=== PATIENT | female | born 1930 | race Caucasian/White ===

== ENCOUNTER → 2016-11-15 | Outpatient (CLI) | payer OTHER ==
[~2016-11-15] MED LIST: ALBUAER2 INH; APIX1TAB3 PO; ASPEC81 PO; ASPI81TA28 PEG; ASPI81TA28 PO; CALC500C70 PO; CHOL1000 PO; ELQ25 PO; FURO-85 PO; GABA-112 PO; HYDR-3763 PO; HYDR-4383 PO; LEVO-14 PO; LISI-461 PO; LORA-741 PO; LPT40 PO; MECL1TAB42 PO; MULT-506 PO; NTRSLP4 SL; PLV75 PO; PRLSR20 PO; PRT40 PO; SIMV20TA2 PO; SYMIN/8045 INH; SYMIN160 INH; TPRSR25 PO
[2016-11-15 12:20] LABS: URINE APPEARANCE CLEAR (CLEAR); URINE BILIRUBIN NEG (NEG); URINE COLOR DK YELLOW; URINE EPITHELIAL CELL AUTO >30 /lpf (0-5); URINE NITRITE NEG (NEG); URINE SPECIFIC GRAVITY 1.024 (1.000-1.030); UROBILINOGEN NEG (NEG)
[2016-11-15 12:25] LABS: BLOOD UREA NITROGEN 28 mg/dl (7-18)
[2016-11-15 12:29] LABS: MANUAL MICROSCOPIC REQUIRED? NO; REVIEW REQ? YES
== END | disposition home or self-care (01) ==
LOC: C.LAB1850 10:46
PROVIDERS: ATTEND Physical Medicine & Rehabilitation
DX: Z79.1 Long term (current) use of non-steroidal anti-inflammatories (NSAID) (principal); R39.9 Unspecified symptoms and signs involving the genitourinary system

== ENCOUNTER → 2016-11-29 | Day surgery (SDC) | payer OTHER ==
[2016-11-27 09:15] VITALS: Ht 166.4 cm; Wt 84.1 kg
[~2016-11-29] VITALS: Ht 166.4 cm; Wt 84.1 kg
[~2016-11-29] MED LIST changes: -ASPI81TA28 PEG; +BUPIVACAINE 0.25% 2.5MG/ML PF 10 ML VIAL INFIL ONE; +IOPAMIDOL INJ 61% 15 ML VIAL ONE; +LIDOCAINE HCL 1% MPF 5 ML VIAL ONE; -SYMIN/8045 INH
--- NOTE | 2016-11-29 14:31 | History & Physical Bridge - [place] ---
H&P Re-Evaluation Bridge Note: I have examined the patient, reviewed the History & Physical and in the interval since the performance of the History & Physical I have noted the following changes of clinical significance: No changes noted
[2016-11-29 14:55] VITALS: TEMP 36.8
--- NOTE | 2016-11-29 14:58 | Discharge Instructions ---
Discharge Instructions Visit Reason for Visit: Sacroiliitis Discharge Discharge Diagnosis / Problem: low back pain Discharge Goals Goal(s): Decrease discomfort, Improve function Activity Recommendations Activity Limitations: resume your previous activity Anesthesia . Post Anesthesia Instructions: If you have had General Anesthesia or IV Sedation: * Do not drive today. * Resume driving when surgeon permits. * Do not make important decisions or sign legal documents today. * Call surgeon for: 1. Temperature elevations greater than 101 degrees F. 2. Uncontrollable pain. 3. Excessive bleeding. 4. Persistent nausea and vomiting. 5. Medication intolerance (nausea, vomiting or rash). * For nausea and vomiting use only clear liquids such as: tea, soda, bouillon until nausea subsides, then gradually increase diet as tolerated. * If you have any concerns or questions, call your surgeon's office. If physician is unavailable and it is an emergency, call 911 or go to the nearest emergency room. . Diet Recommendations Recommended Home Diet: resume previous diet Procedures Procedures Performed: BILATERAL SACROILIAC JOINT INJECTION Pending Studies Studies pending at discharge: no Medical Emergencies . Who to Call and When: Medical Emergencies: If at any time you feel your situation is an emergency, please call 911 immediately. . Non-Emergent Contact Non-Emergency issues call your: Specialist . . "Provider Documentation" section prepared by Ankit Mccullough.
[2016-11-29 15:11] VITALS: BP 179/79; PULSE 65; O2SAT 95
--- NOTE | 2016-11-29 15:30 | OPERATIVE REPORT ---
DATE OF OPERATION: 11/29/2016 PREOPERATIVE DIAGNOSIS: Bilateral sacroiliitis. POSTOPERATIVE DIAGNOSIS: Same. PROCEDURE: Bilateral sacroiliac joint injections under fluoroscopic guidance. INDICATIONS FOR PROCEDURE: The patient is an 86-year-old white female who has intractable low back pain. She is describing them laterally in the sacroiliac joint region and she reports that it is uncomfortable trying to function, standing for too long, extending, twisting and very uncomfortable. She is requesting SI joint injections to be injected to provide her with some relief of this pain for the therapeutic purposes. PHYSICAL EXAMINATION: GENERAL: Pleasant female, seated comfortably, in no apparent distress. MUSCULOSKELETAL: She has point tenderness to palpation of her SI joints bilaterally. She has normal motor and sensory examination of her lower extremities and she has a positive Jules maneuver and sacral compression maneuver bilaterally. CONSENT: Verbal and written consent was obtained from the patient. Risks and benefits were reviewed. Risks include but are not limited to abscess and allergic reaction. The patient wishes to proceed. DESCRIPTION OF PROCEDURE: The patient was taken back to the special procedures room of the [facility]. She was maintained in a prone position. Backside was cleansed with Betadine x3 and a dry sterile dressing was applied. Fluoroscope was used to identify the left SI joint and the overlying skin was anesthetized with 2.5 mL of lidocaine 1% with a 25-gauge 1.5-inch needle. A 25-gauge 3.5-inch spinal needle was then directed into the joint under fluoroscopic guidance. With Isovue 300 contrast to confirm intraarticular uptake, she then underwent injection after negative aspiration of 40 mg of Depo-Medrol and 1.5 mL of bupivacaine 0.25%. The right SI joint then was fluoroscopically identified and overlying skin was anesthetized with 2.5 mL of lidocaine 1% with a 25-gauge 1.5-inch needle. A 25-gauge 3.5-inch spinal needle was then directed into the joint. Isovue-300 contrast 0.25 mL demonstrated intraarticular uptake of the needle being intraarticular into the joint. She then underwent injection after negative aspiration of 40 mg of Depo-Medrol and 1.5 mL of bupivacaine 0.25%. Injection was well tolerated. DISPOSITION: 1. The patient is taken out into the discharge recovery area where she will be discharged home once discharge criteria have been met. 2. Follow up in the [facility] office in 2-4 weeks. I attest to the content of the Intraoperative Record and any orders documented therein. Any exceptio ns are noted below.
== END | disposition home or self-care (01) ==
LOC: X.SURG 12:48
PROVIDERS: ATTEND Physical Medicine & Rehabilitation
DX: M46.1 Sacroiliitis, not elsewhere classified (principal); M96.1 Postlaminectomy syndrome, not elsewhere classified; M47.817 Spondylosis without myelopathy or radiculopathy, lumbosacral region; G89.29 Other chronic pain; Z98.1 Arthrodesis status

== ENCOUNTER 2017-02-09 09:24 | Observation (INO) | payer OTHER ==
[~2017-02-09] VITALS: Ht 165.1 cm; Wt 87.9 kg
[2017-02-09] VITALS (15 sets, daily range): BP systolic 123–192; BP diastolic 62–118; PULSE 75–120; TEMP 36.5–36.6; O2SAT 95–97; Ht 165.1 cm; Wt 87.9 kg
[~2017-02-09 09:24] MED LIST changes: -ASPEC81 PO; -ASPI81TA28 PO; -BUPIVACAINE 0.25% 2.5MG/ML PF 10 ML VIAL INFIL ONE; -ELQ25 PO; -HYDR-4383 PO; -IOPAMIDOL INJ 61% 15 ML VIAL ONE; -LIDOCAINE HCL 1% MPF 5 ML VIAL ONE; -LPT40 PO; -MULT-506 PO; -NTRSLP4 SL; -PLV75 PO; -PRT40 PO
[2017-02-09] MEDS ORDERED: ASPI81TA28 PO (10:43)
[2017-02-09] MEDS ORDERED: GABA-112 PO (10:43)
[2017-02-09] MEDS ORDERED: MULT-506 PO (10:43)
[2017-02-09] MEDS ORDERED: HYDR-3763 PO (10:43)
[2017-02-09] MEDS ORDERED: FENTANYL CITRATE INJ 50 MCG/1 ML 2 ML VIAL ONE (11:36)
[2017-02-09] MEDS ORDERED: NiCARDipine HCL INJ 2.5 MG/ML 10 ML AMP ONE (11:36)
[2017-02-09] MEDS ORDERED: HEPARIN SOD (PORCINE) 1000 UNIT/ML 10 ML VIAL ONE (11:36)
[2017-02-09] MEDS ORDERED: MIDAZOLAM HCL 1 MG/ML 2ML VIAL ONE ×2 (11:36→13:04)
[2017-02-09] MEDS ORDERED: NITROGLYCERIN/D5W 100MCG/ML 20ML SYR ONE (11:37)
--- NOTE | 2017-02-09 12:24 | Procedure Note ---
Pre-Mod Sedation Assessment General Date of Moderate Sedation: Feb 09, 2017. Vital Signs: Vital Signs Past 12 Hours Date Time Temp Pulse Resp B/P Pulse Ox O2 Delivery O2 Flow Rate FiO2 02/09/17 10:19 85 16 180/65 95 Room Air Review Cardiovascular: regular rate, rhythm, no edema Abdomen: normal bowel sounds, non tender Lungs: chest non-tender, lungs clear Pre-Sedation Airway Assessment Oral Cavity: Dentures Able to Visualize Vocal Cords: Yes Short Thick Neck: No Hx of Sleep Apnea: No Smoking Status: Former Smoker Mallampati Classification: Class III ASA Classification: Class III Procedure Planning Contraindications-for Mod Sed: None Yes Notes The planned sedation has been discussed with the patient and consent obtained. I have identified the patient, determined the appropriateness of sedation and have assessed the patient immediately prior to the procedure. All medicine(s) and interventions are by my order.
[2017-02-09] MEDS ORDERED: ADENOSINE IV SOLN 3 MG/ML 20 ML VIAL ONE (13:27)
[2017-02-09] MEDS ORDERED: HydrALAZINE HCL 20 MG/ML VIAL ONE (13:33)
[2017-02-09] MEDS ORDERED: CLOPIDOGREL BISULFATE 300 MG TAB PO ONE (14:24)
[2017-02-09] MEDS ORDERED: ACETAMINOPHEN 325 MG TAB PO PRN (14:30)
[2017-02-09] MEDS ORDERED: ONDANSETRON INJ 2 MG/ML 2 ML VIAL IV PRN (14:30)
[2017-02-09] MEDS ORDERED: NITROGLYCERIN 0.4 MG SL PER TAB CHARGE SL PRN (14:30)
[2017-02-09 14:39] LABS: ISTAT ARTERIAL BLOOD GAS HCO3 25 meq/L (19-24); ISTAT ARTERIAL BLOOD GAS PCO2 42 mmHg (35-46); ISTAT ARTERIAL BLOOD GAS PO2 34 mmHg (80-95); ISTAT ARTERIAL BLOOD GAS pH 7.39 (7.35-7.45); ISTAT CARBON DIOXIDE 26 mEq/l (24-31)
[2017-02-09 14:39] LABS: ISTAT ARTERIAL BLOOD GAS HCO3 23 meq/L (19-24); ISTAT ARTERIAL BLOOD GAS PCO2 36 mmHg (35-46); ISTAT ARTERIAL BLOOD GAS PO2 69 mmHg (80-95); ISTAT ARTERIAL BLOOD GAS pH 7.41 (7.35-7.45); ISTAT CARBON DIOXIDE 24 mEq/l (24-31)
[2017-02-09] MEDS ORDERED: HYDROCODONE/ACETAMI 10/325 TAB PO PRN (14:45)
[2017-02-09] MEDS ORDERED: LORAZEPAM 0.5 MG TAB PO PRN (14:45)
[2017-02-09] MEDS ORDERED: ALBUTEROL HFA 8 GM INHALER INH PRN (14:45)
[2017-02-09] MEDS ORDERED: MECLIZINE HCL 25 MG TAB PO PRN (14:45)
--- NOTE | 2017-02-09 15:09 | Procedure Note ---
Post-Mod Sedation Assessment General Date of Moderate Sedation Feb 09, 2017. Vital Signs: Vital Signs Past 12 Hours Date Time Temp Pulse Resp B/P Pulse Ox O2 Delivery O2 Flow Rate FiO2 02/09/17 14:37 102 16 137/85 96 Room Air 02/09/17 14:22 115 16 160/92 96 Room Air 02/09/17 10:19 85 16 180/65 95 Room Air Review - Discharge Criteria Vital Signs Stable: Yes Alert/Oriented/Conversant: Yes Returned to Baseline Mental St: Yes Nausea Absent/Minimal: Yes Pain/Discomfort/Absent/Minimal: Yes Normal/Baseline Respirations: Yes Active Bleeding?: N/A Pt Received D/C Instructions: N/A Prescriptions Given: None Specific Proced. D/C Criteria Distal Pulses Present (Cardiac: Yes Groin site assessed-Card Cath: N/A Voided Prior To Discharge: N/A Discharged Patients Adult Escort/Transportation: Yes
[2017-02-09] MEDS ORDERED: METOPROLOL SUCC 25MG EXT REL TAB PO ONE (15:18)
[2017-02-09] MEDS: SODIUM CHLORIDE 0.9% 1000ML 1,000 ML IV SCH ×2 (15:45→23:50)
[2017-02-09] MEDS ORDERED: IV FLUIDS COMPLETED PRN (16:00)
--- NOTE | 2017-02-09 17:21 | Cardiac Catheterization ---
Procedure Note Procedure Date Feb 09, 2017. Pre-Procedure Diagnosis Angina AUC Score 7 Post-Procedure Diagnosis Severe CAD, Successful PCI, Normal Intracardiac Pressures Procedure(s) Performed Coronary Angiography, Right Heart Cath, Drug Eluting Stent, Ultrasound Guided Vascular Access, Fractional Flow [place] [employer] Inspector Dr. Power Wall Scraper(s) Cortes Medication(s) Clopidogrel, Fentanyl, Heparin, Nicardipine, Nitroglycerin, Versed, Lidocaine 1% Hydralazine Summary of Findings Indication: Exertional dizziness, shortness of breath Access: 6Fr slender left radial artery, 6Fr slender left brachial vein using ultrasound guidance. Right radial artery accessed multiple times but unable to pass wire proximally. Catheters: 6Fr swan, JL3.5, JR 4, AR2, EBU 3.5 guide Findings: LM - Luminal irregularities LAD - Moderate caliber vessel, 30-40% ostial stenosis; diffuse 70-80% stenosis in the mid segment beginning at take-off of 1st diagonal; distal 40% stenosis before tapers as wraps around apex. Small 1st diagonal with ostial 60-70% stenosis Circumflex - Large, dominant vessel; Mild luminal irregularities in circumflex and branches. Gives off large OM2, several small PLBs and L-PDA. RCA - Small, non-dominant; high-anterior take-off; luminal irregularities. RHC RA 7 RV 33/9 PA 31/13 (21) PCW 11 AoSat 94% PaSat 65% KEVIN/CI -- 4.5/2.6 FFR mid LAD 0.73 -- PCI -- Antithrombotic therapy: Heparin, Clopidogrel Procedure: LM cannulated with EBU 3.5 guide BMW wire passed across lesion into distal LAD Prowater placed into 1st diagonal Mid LAD lesion predilated with 2.5 compliant balloon Dilated lesion stented with 3.0 x 38 Resolute KOLBY Stent post-dilated with 3.5 noncompliant balloon IC vasodilators administered for spasm Post procedure JUICE 3 flow, stent well expanded with minimal residual stenosis and no apparent cardiac complications. 1st diagonal with 80% ostial stenosis post stent placement but preserved JUICE 3 flow Arterial Closure: TR Band Summary: 1. Severe single vessel coronary artery disease - 70-80% diffuse mid LAD disease. FFR positive at 0.73 2. Normal intracardiac filling pressures. No significant pulmonary hypertension. 3. Normal cardiac output. 4. 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 Paul Consult cardiac Rehab Hemodynamics Rest Ao: 169/87/108 Final Ao: 147/72/108 LV: -- Recommendations PCI without planned CABG Specimens None Radiation Exposure (mGy) 3056 Contrast (mls) 260 Fluids (cc crystalloids) 236 Drains None Anesthesia Moderate Procedural Complication(s) None Disposition PCU ACC Data Cardiac Status Clinical evaluation leading to the procedure CAD Presntation: Stable angina Anginal Classification: CCS III Heart Failure: No, NYHA Class: CCS I Cardiogenic Shock w/in 24Hrs: No Cardiac Arrest w/in 24Hrs: No Imaging studies past 6 months: Yes Stress studies past 6 months: No Standard Exercise Stress Test: No Stress Echocardiogram: No Stress Testing w/SPECT MPI: No Cardiac CTA: No Coronary Anatomy Dominant: Left Left Main (% Stenosis): Normal LAD (% Stenosis): Mid (70-80%) D1 (% Stenosis): Ostial (60-70%) Circumflex (% Stenosis): Normal RCA (% Stenosis): Normal Diagnostic Physician's Name: Jules Power MD Closure Device Percutaneous Entry Location: Radial Closure Device: Radial Band Recommendations: PCI without planned CABG PCI Indication: Stable Angina Lesion Segment Name: Mid LAD Culprit Artery: Yes Stenosis Prior to Rx (%): 70-80 Chronic Total Occlusion: No IVUS: No FFR: Yes Ratio: less than or equal to 0.75% Pre-Procedure JUICE Flow: 3 Previously Treated Lesion: No Lesion Complexity: Non-High/Non-C Lesion Length (mm): 35 Thrombus Present: No Bifurcation Lesion: Yes Guidewire Across Lesion: Yes Guidewire: Post-Procedure JUICE Flow: 3 Device(s) Deployed: Yes Intraprocedure Events Significant Dissection: No Perforation: No
[2017-02-09] MEDS: CALCIUM 600MG + VIT D 400 IU TAB PO SCH (20:01)
[2017-02-09 20:44] LABS: CREATININE 1.1 mg/dl (0.60-1.20)
[2017-02-09] MEDS ORDERED: GABAPENTIN 100 MG CAP PO SCH (21:00)
[2017-02-10 01:00] VITALS: BP 150/58; PULSE 65
[2017-02-10 03:46] VITALS: BP 155/73; PULSE 72; TEMP 36.4; O2SAT 95
[2017-02-10 06:27] LABS: BASO % 0.3 %; BASO ABS # 0.02 K/uL (0-0.2); COMPLETE YES; EOS % 1.8 %; HEMATOCRIT 34.5 % (37-47); IG% 0.3 %; LYMPH % 20.7 %; LYMPH ABS # 1.48 K/uL (1.2-3.4); MEAN CELL VOLUME 94.5 fL (80-100); MEAN CORPUSCULAR HEMOGLOBIN 29.9 pg (25-34); MEAN CORPUSCULAR HGB CONC 31.6 g/dl (32-36); MEAN PLATELET VOLUME 10.3 fL (7.4-10.4); MONO % 13.3 %; NEUT % 63.6 %; PLATELET COUNT 185 K/uL (130-400); RED BLOOD COUNT 3.65 M/uL (4.2-5.4); WHITE BLOOD COUNT 7.16 K/uL (4.8-10.8)
[2017-02-10 07:11] LABS: CALCIUM 8.8 mg/dl (8.5-10.1); CREATININE 0.81 mg/dl (0.60-1.20); POTASSIUM 3.8 mmol/L (3.5-5.1)
[2017-02-10 07:51] VITALS: BP 152/80; PULSE 77; TEMP 37.1; O2SAT 94
[2017-02-10] MEDS: CALCIUM 600MG + VIT D 400 IU TAB PO SCH (08:34)
[2017-02-10] MEDS ORDERED: CHOLECALCIFEROL 1000 INTER.UNIT TAB PO SCH (09:00)
[2017-02-10] MEDS ORDERED: CLOPIDOGREL BISULFATE 75 MG TAB PO SCH (09:00)
[2017-02-10] MEDS ORDERED: PANTOprazole SOD 40 MG TAB PO SCH (09:00)
[2017-02-10] MEDS ORDERED: MULTIVITAMIN TAB PO SCH (09:00)
[2017-02-10] MEDS ORDERED: LISINOPRIL 10 MG TAB PO SCH (09:00)
[2017-02-10] MEDS ORDERED: APIXABAN 2.5 MG TAB PO SCH (09:00)
[2017-02-10] MEDS ORDERED: ATORVASTATIN 40 MG TAB PO SCH (09:00)
[2017-02-10] MEDS ORDERED: METOPROLOL SUCC 25MG EXT REL TAB PO SCH (09:00)
[2017-02-10] MEDS ORDERED: ASPIRIN 81 MG ECTAB PO SCH (09:00)
[2017-02-10] MEDS ORDERED: ELQ25 PO (09:07)
[2017-02-10] MEDS ORDERED: NTRSLP4 SL (09:07)
[2017-02-10] MEDS ORDERED: LPT40 PO (09:07)
[2017-02-10] MEDS ORDERED: PLV75 PO (09:07)
--- NOTE | 2017-02-10 09:09 | Discharge Instructions ---
Discharge Instructions Procedure Procedure Date: Feb 10, 2017. Reason for Visit: Angina Pectoris. Discharge Discharge Date: Feb 10, 2017. Discharge Diagnosis: Coronary artery disease post stenting Last Recorded Wt (Kilograms): 87.900 Anesthesia Post Anesthesia Instructions: If you have had IV Sedation: * Do not drive today. * Resume driving when surgeon permits. * Do not make important decisions or sign legal documents today. * Call surgeon for: 1. Temperature elevations greater than 101 degrees F. 2. Uncontrollable pain. 3. Excessive bleeding. 4. Persistent nausea and vomiting. 5. Medication intolerance (nausea, vomiting or rash). * For nausea and vomiting use only clear liquids such as: tea, soda, bouillon until nausea subsides, then gradually increase diet as tolerated. * If you have any concerns or questions, call your surgeon's office. If physician is unavailable and it is an emergency, call 911 or go to the nearest emergency room. Instructions Activity Recommendations: limitations as noted below Recommended Home Diet: resume previous diet, low cholesterol Allergies: Coded Allergies: Doxycycline (Verified Adverse Reaction, Mild, n/v, 11/29/16) Provider Instructions ACTIVITY RECOMMENDATIONS: It is common to feel weak and fatigue for a few days. * Do not drive or operate any motorized equipment for the next three days. * Limit stair usage (2 or 3 trips a day only) for the next three days. * Do not lift anything heavier than 10 pounds for the next three days. * Do not engage in vigorous exercise or any sports for the next five days. * You may shower the day after your procedure, but do not immerse the area for three days. Cleanse the site gently with soap and water. SPECIAL CARE INSTRUCTIONS: * You may replace the pressure dressing or band-aid the morning after the procedure. * After your procedure, it is normal to have a small bruise or small lump at the site. Examine your site daily for any change in the bruise or lump, redness, swelling, drainage or numbness. Notify your doctor if any change. BLEEDING: * If there is a small amount of bleeding at the site, lie down and apply firm pressure with a clean cloth for ten minutes. When the bleeding stops, lie quietly keeping the procedure limb straight for six hours. Notify your doctor as soon as possible. * If the bleeding does not stop after ten minutes or if there is a large amount of bleeding or spurting, call 911 immediately. Continue to lie down and hold firm pressure until help arrives. SKIN IRRITATION: * You may experience some redness and/or swelling in the area where radiation was administered. If any skin irritation occurs, please contact your family physician. FOLLOW UP VISIT: Keep any scheduled doctor appointments. Follow Up Follow-up with: Follow-up with Dr. Paul in 2-3 weeks. Carlyn Braun Recommendations: Call your doctor if: * Temperature above 101 degrees * Pain not relieved by pain medicine ordered * There is increased drainage or redness from any incision * You have any unanswered questions or concerns. Your Doctors Instructions noted above were prepared by provider Rangel Power. Patient Signature Section: Patient Instructions Signature Page Jessica Urrutia Patient (or Guardian) Signature/Date: I have read and understand the instructions given to me by my caregivers. Caregiver/RN/Doctor Signature/Date: The above-named patient and/or guardian has received patient instructions on this date. + Original Patient Signature Page (only) stays with chart. Please make copy for patient.
--- NOTE | 2017-02-10 09:41 | DISCHARGE SUMMARY ---
DATE OF DISCHARGE: 02/10/2017. PRINCIPAL DIAGNOSES: 1. Coronary artery disease status post percutaneous coronary intervention. 2. Angina. 3. Atrial fibrillation. 4. Hypertension. PROCEDURE: Cardiac catheterization. FINDINGS: 1. Left main luminal irregularities. 2. Left anterior descending moderate caliber vessel with 30-40% ostial stenosis, diffuse 70-80% diffuse stenosis in the mid segment, small first diagonal with ostial 60-70% stenosis. 3. Circumflex large dominant vessel with luminal irregularities. 4. RCA was small, nondominant high anterior takeoff with luminal irregularities. RIGHT HEART CATHETERIZATION: 1. RA pressure of 7, RV pressure of 33/9, PA pressure of 31/13 with a mean of 21, wedge of 11, aortic sat of 94, PA sat of 65, calculated Melissa cardiac output/cardiac index 4.5/2.6. 2. FFR mid LAD 0.73. 3. PCI mid LAD treated with 1 drug-eluting stent 3.0 x 38 Resolute post-dilated to 3.5. CONSULTATIONS: None. DISCHARGE MEDICATIONS: 1. Apixaban 2.5 mg b.i.d. 2. Atorvastatin 40 mg daily. 3. Clopidogrel 75 mg daily. 4. Nitroglycerin 0.4 mg tablets p.r.n. 5. Albuterol inhaler 2 puffs inhaled q.i.d. p.r.n. 6. Aspirin 81 p.o. daily. 7. Calcium vitamin D 1 tab b.i.d. 8. Cholecalciferol 2 tabs, 1000 units q.a.m. 9. Furosemide 20 mg p.r.n. 10. Gabapentin 200 mg p.o. at bedtime. 11. Vicodin 1 tab p.o. q. 6 hours p.r.n. 12. Levocetirizine 5 mg q.a.m. 13. Lisinopril 10 mg daily. 14. Lorazepam 0.5 p.o. daily p.r.n. 15. Meclizine 25 mg t.i.d. p.r.n. 16. Metoprolol succinate 25 mg p.o. daily. 17. Multivitamin 1 tab p.o. daily. 18. Omeprazole 20 mg daily. FOLLOWUP: Follow up with Dr. Paul in 2-3 weeks. HISTORY OF PRESENT ILLNESS: Ms. Urrutia is an 86-year-old woman with a history of hypertension, paroxysmal atrial fibrillation on anticoagulation, prior CVA who presented for cardiac catheterization in the setting of exertional dyspnea, dizziness and diaphoresis. HOSPITAL COURSE: The patient underwent left and right heart catheterization on the day of admission. Findings as detailed above, but was noted to have normal intracardiac filling pressures, normal cardiac output. No signs of pulmonary hypertension on right heart catheterization. Left coronary angiography revealed a diffuse mid 70% stenosis in her LAD. FFR was done which was positive at 0.73 and PCI was undertaken with placement of a 3.0 x 38 Resolute drug-eluting stent to her mid LAD. A good angiographic result was obtained. There was some pinching of a small first diagonal, but good flow was maintained. Post-procedure she was chest pain free. She was admitted to telemetry and monitored overnight. She initially was in atrial fibrillation with RVR, but had adequate rate control with restarting of her home metoprolol succinate. Overnight she had no other issues. In the morning of discharge, she was chest pain free, had some mild bruising around her left brachial vein right heart catheterization site, but otherwise no significant access site complications. Her post-procedure labs were unremarkable and she was thought safe for discharge. The patient will follow up with Dr. Paul in 2-3 weeks. In the interim, will continue on triple therapy with aspirin, Plavix and apixaban at 2.5 mg b.i.d.
[2017-02-10 09:56] VITALS: BP 152/80; PULSE 77; TEMP 37.1; O2SAT 94
== END 2017-02-10 10:45 | disposition home or self-care (01) ==
LOC: C.CATH 09:24 → C.MSICU 14:36 → C.2T 02-10 06:35
PROVIDERS: ADMIT Internal Medicine Interventional Cardiology; ATTEND Internal Medicine Interventional Cardiology
DX: I25.119 Atherosclerotic heart disease of native coronary artery with unspecified angina pectoris (principal); J45.909 Unspecified asthma, uncomplicated; M19.90 Unspecified osteoarthritis, unspecified site; N18.9 Chronic kidney disease, unspecified; I48.0 Paroxysmal atrial fibrillation; M48.00 Spinal stenosis, site unspecified; I12.0 Hypertensive chronic kidney disease with stage 5 chronic kidney disease or end stage renal disease; Z79.01 Long term (current) use of anticoagulants; Z85.3 Personal history of malignant neoplasm of breast; Z92.21 Personal history of antineoplastic chemotherapy; Z90.10 Acquired absence of unspecified breast and nipple; Z86.73 Personal history of transient ischemic attack (TIA), and cerebral infarction without residual deficits; Z80.0 Family history of malignant neoplasm of digestive organs; Z82.49 Family history of ischemic heart disease and other diseases of the circulatory system

== ENCOUNTER 2017-04-22 09:10 | Inpatient (IN) | payer OTHER ==
[2017-04-22] VITALS (18 sets, daily range): BP systolic 95–151; BP diastolic 43–80; PULSE 64–83; TEMP 36.4–37.1; O2SAT 93–100; Ht 165.1 cm; Wt 89.1 kg
[~2017-04-22] VITALS: Ht 165.1 cm; Wt 89.1 kg
[~2017-04-22 09:10] MED LIST changes: -APIX1TAB3 PO; +ASPI81TA28 PO; +ELQ25 PO; +LPT40 PO; +MULT-506 PO; +NTRSLP4 SL; +PLV75 PO; -SIMV20TA2 PO; -SYMIN160 INH
[2017-04-22] MEDS ORDERED: SODIUM CHLORIDE 0.9% 1000ML 1,000 ML IV STA (09:31)
[2017-04-22] MEDS ORDERED: FAMOTIDINE 20MG/102 ML D5W IV STA (09:33)
[2017-04-22] MEDS ORDERED: PANTOprazole INJ 80 MG in DEXTROSE 5% 100ML IV SCH (09:45)
[2017-04-22 09:52] LABS: ISTAT CREATININE 1.1 mg/dl (0.6-1.3); ISTAT HEMOGLOBIN 8.5 g/dl (12.0-16.0); ISTAT IONIZED CALCIUM 1.07 mmol/l (1.12-1.32)
[2017-04-22] MEDS: PANTOprazole INJ 40 MG in DEXTROSE 5% 100ML IV SCH ×3 (09:57→19:36)
[2017-04-22] MEDS ORDERED: CHARCOAL, ACTIVATED LIQ 25 GM/120 ML TUBE PO STA (10:03)
[2017-04-22 10:12] LABS: INR 1.1 (0.9-1.1); PARTIAL THROMBOPLASTIN RATIO 0.8; PROTHROMBIN TIME (PATIENT) 11.4 SECONDS (9.0-12.0)
--- NOTE | 2017-04-22 10:24 | DIAGNOSTIC IMAGING REPORT ---
SINGLE VIEW CHEST CLINICAL HISTORY: Generalized abdominal pain. FINDINGS: An AP, portable, upright chest radiograph is compared to chest x-ray and chest CT dated 03/10/2016. The examination is degraded by portable technique and patient rotation. The heart is enlarged and there is atherosclerotic calcification of the thoracic aorta. The pulmonary vasculature is noncongested. The mitral annulus is densely calcified. Chronic interstitial thickening is similar to previous. There is minimal left basilar atelectasis. The lungs and pleural spaces are otherwise clear. No pneumothorax is seen. The skeletal structures are osteopenic. The bony thorax is grossly intact. Surgical clips are noted in the right axilla. IMPRESSION: Cardiomegaly with no acute cardiopulmonary abnormality. Electronically signed by: Vinnie Thacker M.D. 04/22/2017 10:23 AM Dictated Date/Time: 04/22/2017 10:22 AM
[2017-04-22 10:26] LABS: ALKALINE PHOSPHATASE 40 U/L (45-117); ALT/SGPT 14 U/L (12-78); BLOOD UREA NITROGEN 79 mg/dl (7-18); BUN/CREATININE RATIO 60.4 (10-20); CARBON DIOXIDE 21 mmol/L (21-32); CHLORIDE 111 mmol/L (98-107); GLUCOSE 142 mg/dl (70-99)
[2017-04-22 10:39] LABS: POTASSIUM 3.5 mmol/L (3.5-5.1); SODIUM 143 mmol/L (136-145)
[2017-04-22 10:47] LABS: AST/SGOT 9 U/L (15-37); CKMB/CK RATIO 2.2 (0-3.0); MAGNESIUM 1.7 mg/dl (1.8-2.4)
--- NOTE | 2017-04-22 10:47 | EMERGENCY ROOM VISIT NOTE ---
History Report prepared by Jennifer: Greer Bishop Under the Supervision of: Dr. Jomar Hussein D.O. First contact with patient: 09:28 Chief Complaint: DIZZY Stated Complaint: DIZZINESS,BLACK STOOLS,DIARRHEA Nursing Triage Summary: pt reports dizziness X 2 weeks , family reports black stools X 1 week , pt reports multiple falls recently and unable to keep balance pt had 1 cardiac stent 2 months ago History of Present Illness The patient is an 87 year old female who presents to the Emergency Room with complaints of persistent dizziness for the past 2 weeks. She is here with her daughter. She reports that she has been unable to keep her balance and has fallen recently. She has had black stools starting 3 days ago. Her blood pressure was found to be low. She is feeling weak. She denies any nausea or leg pain. She has a history of vertigo. The patient is on Plavix and Eliquis. She has a history of A fib. She had bleeding in her stomach 4-5 years ago which required a blood transfusion. She had a cardiac stent placed 2 months ago. She denies any history of heart failure. She has not had any heart surgery before. She denies any history of blood clots. Source of History: patient, family Onset: 2 weeks Position: other (global) Quality: other (dizziness) Timing: other (persistent) Associated Symptoms: + weakness, No nausea Note: Pt reports recent falls. Pt denies leg pain. Review of Systems See HPI for pertinent positives & negatives. A total of 10 systems reviewed and were otherwise negative. Past Medical & Surgical Medical Problems: (1) Angina pectoris (2) Atrial fibrillation with RVR (3) Blood loss anemia (4) Breast cancer (5) CVA (cerebral vascular accident) (6) TIA (transient ischemic attack) (7) Upper GI bleed Family History Patient reports no known family medical history. Social History Smoking Status: Never Smoker Drug Use: none Occupation Status: retired Current/Historical Medications Scheduled Apixaban (Eliquis), 5 MG PO BID Atorvastatin (Atorvastatin Calcium), 40 MG PO QAM Calcium/Vitamin D (Os-Josiah 500 Plus D), 1 TAB PO BID Cholecalciferol (Vitamin D3), 2 TAB PO QAM Clopidogrel Bisulfate (Clopidogrel), 75 MG PO QAM Gabapentin (Neurontin), 200 MG PO HS Lisinopril (Zestril), 10 MG PO QAM Metoprolol Succinate (Metoprolol Succinate ER), 25 MG PO QAM Multivitamin (Multivitamin), 1 TAB PO DAILY Scheduled PRN Albuterol (Ventolin), 2 PUFFS INH QID PRN for SOB/Wheezing Furosemide (Lasix), 20 MG PO DAILY PRN for swelling, fluid retention Hydrocodone/Acetaminophen (Poplar 10/325 Tab), 1 TAB PO TID PRN for Pain Lorazepam (Ativan), 0.5 MG PO DAILY PRN for Anxiety Meclizine Hcl (Meclizine Hcl), 25 MG PO TID PRN for vertigo Nitroglycerin (Nitrostat), 0.4 MG SL UD PRN for Chest Pain Allergies Coded Allergies: Doxycycline (Verified Adverse Reaction, Mild, n/v, 11/29/16) Physical Exam Vital Signs Date Time Temp Pulse Resp B/P (MAP) Pulse Ox O2 Delivery O2 Flow Rate FiO2 04/22/17 11:16 116/80 04/22/17 11:15 73 20 116/80 95 04/22/17 11:06 76 24 04/22/17 11:02 127/93 04/22/17 11:00 98 Room Air 2.0 04/22/17 10:57 36.7 83 22 95/52 98 2.0 04/22/17 10:54 95/52 04/22/17 10:51 80 28 96 04/22/17 10:46 110/70 04/22/17 10:36 81 117/59 97 04/22/17 10:35 37.1 80 20 117/59 97 2.0 04/22/17 10:31 111/43 04/22/17 10:21 82 96 04/22/17 10:16 106/54 04/22/17 10:06 77 23 94 04/22/17 10:01 117/43 04/22/17 09:51 79 19 93 04/22/17 09:46 94/46 04/22/17 09:40 84 21 95 04/22/17 09:39 97/55 04/22/17 09:29 97 04/22/17 09:21 36.3 132 24 68/67 88 Room Air Physical Exam GENERAL: Patient is awake, alert, and very anxious appearing. EYES: The conjunctivae are clear. The pupils are round and reactive. EARS, NOSE, MOUTH AND THROAT: The nose is without any evidence of any deformity. Mucous membranes are moist tongue is midline NECK: The neck is nontender and supple. RESPIRATORY: Normal respiratory effort is noted there is no evidence of wheezing rhonchi or rales CARDIOVASCULAR: Regular rate and rhythm noted there no murmurs rubs or gallops normal S1 normal S2 GASTROINTESTINAL: The abdomen is soft. Bowel sounds are present in all quadrants. Abdomen is nontender. Rectal exam revealed black stool which was strongly heme positive. MUSCULOSKELETAL/EXTREMITIES: There is no evidence of gross deformity full range of motion is noted in the hips and shoulders SKIN: There is no obvious evidence of any rash. There are no petechiae, pallor or cyanosis noted. Pedal edema bilaterally. NEUROLOGIC: Patient is awake alert and oriented x3 Medical Decision & Procedures ER Provider Diagnostic Interpretation: X-ray results as stated below per interpretation by me and the radiologist. SINGLE VIEW CHEST CLINICAL HISTORY: Generalized abdominal pain. FINDINGS: An AP, portable, upright chest radiograph is compared to chest x-ray and chest CT dated 03/10/2016. The examination is degraded by portable technique and patient rotation. The heart is enlarged and there is atherosclerotic calcification of the thoracic aorta. The pulmonary vasculature is noncongested. The mitral annulus is densely calcified. Chronic interstitial thickening is similar to previous. There is minimal left basilar atelectasis. The lungs and pleural spaces are otherwise clear. No pneumothorax is seen. The skeletal structures are osteopenic. The bony thorax is grossly intact. Surgical clips are noted in the right axilla. IMPRESSION: Cardiomegaly with no acute cardiopulmonary abnormality. Electronically signed by: Vinnie Thacker M.D. 04/22/2017 10:23 AM Dictated Date/Time: 04/22/2017 10:22 AM Laboratory Results 04/22/17 09:38 Red Blood Count 2.91, Mean Corpuscular Volume 91.8, Mean Corpuscular Hemoglobin 29.6, Mean Corpuscular Hemoglobin Concent 32.2, Mean Platelet Volume 11.1, Neutrophils (%) (Auto) 73.3, Lymphocytes (%) (Auto) 17.4, Monocytes (%) (Auto) 7.2, Eosinophils (%) (Auto) 1.2, Basophils (%) (Auto) 0.2, Neutrophils # (Auto) 10.82, Lymphocytes # (Auto) 2.57, Monocytes # (Auto) 1.07, Eosinophils # (Auto) 0.17, Basophils # (Auto) 0.03 04/22/17 09:38 Test 04/22/17 09:38 04/22/17 09:43 White Blood Count 14.77 K/uL (4.8-10.8) Red Blood Count 2.91 M/uL (4.2-5.4) Hemoglobin 8.6 g/dL (12.0-16.0) Hematocrit 26.7 % (37-47) Mean Corpuscular Volume 91.8 fL (80-100) Mean Corpuscular Hemoglobin 29.6 pg (25-34) Mean Corpuscular Hemoglobin Concent 32.2 g/dl (32-36) Platelet Count 264 K/uL (130-400) Mean Platelet Volume 11.1 fL (7.4-10.4) Neutrophils (%) (Auto) 73.3 % Lymphocytes (%) (Auto) 17.4 % Monocytes (%) (Auto) 7.2 % Eosinophils (%) (Auto) 1.2 % Basophils (%) (Auto) 0.2 % Neutrophils # (Auto) 10.82 K/uL (1.4-6.5) Lymphocytes # (Auto) 2.57 K/uL (1.2-3.4) Monocytes # (Auto) 1.07 K/uL (0.11-0.59) Eosinophils # (Auto) 0.17 K/uL (0-0.5) Basophils # (Auto) 0.03 K/uL (0-0.2) Bedside Hemoglobin 8.5 g/dl (12.0-16.0) Bedside Hematocrit 25 % (37-47) RDW Standard Deviation 48.8 fL (36.4-46.3) RDW Coefficient of Variation 14.5 % (11.5-14.5) Immature Granulocyte % (Auto) 0.7 % Immature Granulocyte # (Auto) 0.11 K/uL (0.00-0.02) Platelet Estimate NORMAL Prothrombin Time 11.4 SECONDS (9.0-12.0) Prothromb Time International Ratio 1.1 (0.9-1.1) Activated Partial Thromboplast Time 21.8 SECONDS (21.0-31.0) Partial Thromboplastin Ratio 0.8 Bedside Sodium 141 mEq/L (135-144) Bedside Potassium 3.8 mEq/L (3.3-5.0) Bedside Chloride 108 mEq/L (101-112) Bedside Total CO2 20 mEq/l (24-31) Anion Gap 19.0 mmol/L (16-25) Bedside Blood Urea Nitrogen 82 mg/dl (7-18) Bedside Creatinine 1.1 mg/dl (0.6-1.3) Est Creatinine Clear Calc Drug Dose 33.8 ml/min Estimated GFR () 42.7 Estimated GFR (Non- 36.9 BUN/Creatinine Ratio 60.4 (10-20) Bedside Glucose (other) 145 mg/dl (70-99) Calcium Level 9.0 mg/dl (8.5-10.1) Bedside Ionized Calcium (Bola) 1.07 mmol/l (1.12-1.32) Magnesium Level 1.7 mg/dl (1.8-2.4) Total Bilirubin 0.4 mg/dl (0.2-1) Direct Bilirubin 0.1 mg/dl (0-0.2) Aspartate Amino Transf (AST/SGOT) 9 U/L (15-37) Alanine Aminotransferase (ALT/SGPT) 14 U/L (12-78) Alkaline Phosphatase 40 U/L (45-117) Total Creatine Kinase 23 U/L (26-192) Creatine Kinase MB 0.5 ng/ml (0.5-3.6) Creatine Kinase MB Ratio 2.2 (0-3.0) Troponin I < 0.015 ng/ml (0-0.045) Total Protein 6.1 gm/dl (6.4-8.2) Albumin 3.0 gm/dl (3.4-5.0) Lipase 85 U/L (73-393) Bedside Lactic Acid Venous 2.94 mmol/L (0.90-1.70) Laboratory results per my review. Medications Administered Medications (Trade) Dose Ordered Sig/Ron Route Start Time Stop Time Status Last Admin Dose Admin Sodium Chloride 1,000 ml @ 999 mls/hr Q1H1M STAT IV 04/22/17 09:31 04/22/17 10:31 DC 04/22/17 09:43 999 MLS/HR Famotidine (Pepcid 20mg/100 ml) 20 mg ONE STAT IV 04/22/17 09:33 04/22/17 09:34 DC 04/22/17 10:02 20 MG Pantoprazole Sodium 80 mg/ Dextrose 120 ml @ 480 mls/hr 0945 IV 04/22/17 09:45 04/22/17 09:59 DC 04/22/17 09:57 480 MLS/HR Pantoprazole Sodium 40 mg/ Dextrose 100 ml @ 20 mls/hr Q5H IV 04/22/17 10:00 05/22/17 09:59 04/22/17 14:36 20 MLS/HR Activated Charcoal (Actidose-Aqua Liq) 90 gm NOW STAT PO 04/22/17 10:03 04/22/17 10:05 DC 04/22/17 10:14 90 GM Procedure Femoral Central Venous Catheter Indication: GI bleeding Catheter Type: triple lumen Location: right femoral vein Verbal consent was obtained after the risks and benefits were explained, including but not limited to intra-abdominal injury, vessel injury, bleeding, scarring, infection, pain, and bone/joint/nerve damage. At this time, the risks of the procedure are less than the risks of NOT performing the procedure. A time out was taken and the correct patient and site identified. The patient was placed in the supine position and the skin was prepped in the standard fashion with chlorhexidine and full sterile drapes applied. The proper landmarks were anesthetized with 1% lidocaine without epinephrine, and the needle was inserted through the skin in the standard fashion. The needle was carefully advanced into blood vessel lumen. The guidewire was placed uneventfully. The vessel is dilated and the catheter was placed. It was sutured into position. There was good blood return from all ports. The patient tolerated the procedure well and there were no complications. ECG Indication: weakness Rate (beats per minute): 97 Rhythm: normal sinus Findings: no ectopy, other (LVH noted by voltage criteria) Comparison ECG Date: 09-Feb-2017 Change: no significant change ED Course 2128: The patient was evaluated in room B1. A complete history and physical examination were performed. 0931: NSS 1000 ml @ 999 mls/hr IV. 0933: Famotidine 20 mg IV, Pantoprazole Sodium 80 mg/Dextrose 120 ml @ 480 mls/ hr IV. 0937: A central line was placed according to the procedure note above. 0959: I discussed the patient's case with Dr. Chin, [facility]. She is in agreement with the plan. 1003: Activated Charcoal 90 gm PO. 1025: I reevaluated the patient. I discussed results and treatment plan with her and her daughter. They verbalize agreement and understanding. The patient will be evaluated for further management and care. 1055: I discussed the patient's case with Dr. Majano, [facility] hospitalist. The patient will be evaluated for further management. Medical Decision Prior records/ancillary studies reviewed. Triage Nursing notes reviewed. Additional history obtained from the family. The patient's history was concerning for possible gastrointestinal bleeding. Differential diagnosis: Etiologies such as diverticulosis, AVM, coagulopathy, colitis, inflammatory bowel disease, malignancy, Micheline-Callahan tear, esophagitis, peptic ulcer disease , variceal bleed, gastritis, epistaxis, fissure, hemorrhoids, as well as others were entertained. Medication Reconciliation: I attest that I have personally reviewed the patient' s current medications list. Blood pressure screening: Patient was found to have a low blood pressure and was referred to the hospitalist for recheck and further treatment. The patient is an 87-year-old female who presented to emergency department for an evaluation of near syncope dizziness. The patient noticed that she was having dark stools and has a history of GI bleeding. The patient also takes oral anticoagulation as well as antiplatelet therapy. The patient was treated with IV fluids in the emergency department. She was also typed and screened for blood transfusion. The patient had a very low blood pressure on presentation but this improved with IV fluids. I discussed her case with Dr. Berg. She has recommended platelet transfusion as well as charcoal since the patient took her oral anticoagulation this morning. The patient had a central line placed because of poor IV access. Packed red blood cells were made ready. I discussed the patient's laboratory and radiographic studies with her and her daughter. I also discussed his case with the on-call [facility] hospitalist. They've agreed to evaluate the patient in the emergency department for further management and disposition. Consults Time Called: 954 Consulting Physician: Dr. Chin, [facility] Returned Call: [phone] I discussed the patient's case with her. She is in agreement with the plan. Additional Consults: Time Called: 1030 Consulted Physician: Dr. Majano [facility] hospitalist Returned Call: [phone] Additional Comments: I discussed the patient's case with him. The patient will be evaluated for further management. Impression Primary Impression: Upper GI bleeding Additional Impressions: Anemia Hypotension On continuous oral anticoagulation Critical Care I have personally spent greater than 45 minutes of critical care time in the direct management of this patient. This includes bedside care, interpretation of diagnostic studies, and testing, discussion with consultants, patient, and family members, and other required patient management activities. This 45 minutes is in excess of all separately billable procedures. Scribe Attestation The scribe's documentation has been prepared under my direction and personally reviewed by me in its entirety. I confirm that the note above accurately reflects all work, treatment, procedures, and medical decision making performed by me. Departure Information Dispostion Being Evaluated By Hospitalist Referrals Andry Griffin M.D. (PCP) Patient Instructions [facility] Problem Qualifiers Additional Impressions: Anemia Anemia type: unspecified type Qualified Codes: D64.9 - Anemia, unspecified Hypotension Hypotension type: unspecified hypotension type Qualified Codes: I95.9 - Hypotension, unspecified
[2017-04-22 10:51] LABS: BASO % 0.2 %; BASO ABS # 0.03 K/uL (0-0.2); COMPLETE YES; EOS % 1.2 %; HEMATOCRIT 26.7 % (37-47); IG% 0.7 %; LYMPH % 17.4 %; LYMPH ABS # 2.57 K/uL (1.2-3.4); MEAN CELL VOLUME 91.8 fL (80-100); MEAN CORPUSCULAR HEMOGLOBIN 29.6 pg (25-34); MEAN CORPUSCULAR HGB CONC 32.2 g/dl (32-36); MEAN PLATELET VOLUME 11.1 fL (7.4-10.4); MONO % 7.2 %; NEUT % 73.3 %; PLATELET COUNT 264 K/uL (130-400); PLT ESTIMATE NORMAL; RED BLOOD COUNT 2.91 M/uL (4.2-5.4); WHITE BLOOD COUNT 14.77 K/uL (4.8-10.8)
[2017-04-22] MEDS ORDERED: HYDR-4383 PO (10:54)
[2017-04-22] MEDS ORDERED: ONDANSETRON INJ 2 MG/ML 2 ML VIAL IV PRN (11:30)
[2017-04-22] MEDS ORDERED: LEVALBUTEROL/IPRATROPIUM NEB INH PRN (11:30)
[2017-04-22] MEDS ORDERED: ALBUTEROL HFA 8 GM INHALER INH PRN (11:30)
--- NOTE | 2017-04-22 11:39 | History and Physical ---
History & Physical Date & Time of Service: Apr 22, 2017 at 11:27 Chief Complaint: Dizziness,Black Stools,Diarrhea Primary Care Physician: Andry Griffin M.D. History of Present Illness Source: patient, family The patient is an 87-year-old female who presents to the emergency department with dizziness and progressive fatigue over the past 2 weeks. She's had difficulty walking due to imbalance and has fallen recently. She reports black stools started 3 days ago and her blood pressure began to be low at that time as well. She has a history of vertigo, which is what she initially thought this was, but the symptoms are much worse. She presently is taking Plavix and Eliquis for history of A. fib and coronary disease. She has a history of bleeding in her stomach approximately 4-5 years ago that required blood transfusions. She had a cardiac stent placed 2 months ago. She denies chest pain or shortness of breath at this time. Family History Patient reports no known family medical history. Noncontributory Social History Smoking Status: Never Smoker Smokeless Tobacco Use: No Alcohol Use: none Drug Use: none Marital Status: Housing status: lives with family Occupational Status: retired Immunizations History of Influenza Vaccine: Yes Influenza Vaccine Date: Oct 27, 2012 History of Tetanus Vaccine?: No History of Pneumococcal: Yes unsure of year History of Hepatitis B Vaccine: No Multi-Drug Resistant Organisms History of MDRO: No Allergies Coded Allergies: Doxycycline (Verified Adverse Reaction, Mild, n/v, 11/29/16) Home Medications Scheduled Apixaban (Eliquis), 5 MG PO BID Atorvastatin (Atorvastatin Calcium), 40 MG PO QAM Calcium/Vitamin D (Os-Josiah 500 Plus D), 1 TAB PO BID Cholecalciferol (Vitamin D3), 2 TAB PO QAM Clopidogrel Bisulfate (Clopidogrel), 75 MG PO QAM Gabapentin (Neurontin), 200 MG PO HS Lisinopril (Zestril), 10 MG PO QAM Metoprolol Succinate (Metoprolol Succinate ER), 25 MG PO QAM Multivitamin (Multivitamin), 1 TAB PO DAILY Scheduled PRN Albuterol (Ventolin), 2 PUFFS INH QID PRN for SOB/Wheezing Furosemide (Lasix), 20 MG PO DAILY PRN for swelling, fluid retention Hydrocodone/Acetaminophen ([place] 10/325 Tab), 1 TAB PO TID PRN for Pain Lorazepam (Ativan), 0.5 MG PO DAILY PRN for Anxiety Meclizine Hcl (Meclizine Hcl), 25 MG PO TID PRN for vertigo Nitroglycerin (Nitrostat), 0.4 MG SL UD PRN for Chest Pain Review of Systems The patient denies chest pain, palpitations, cough, lower extremity swelling, sore throat, fevers, chills, sweats, weight change, nausea, vomiting, abdominal pain, pelvic pain, blood in urine , dysuria, urinary frequency or urgency, headache, memory loss, rash, focal weakness, numbness or tingling in arms or legs, arthralgias or myalgias, back or neck pain, night sweats, or allergy symptoms. The review of systems is otherwise negative other than for that already noted above, and at least 10 systems have been reviewed. Physical Exam Vital Signs Date Time Temp Pulse Resp B/P (MAP) Pulse Ox O2 Delivery O2 Flow Rate FiO2 04/22/17 10:57 36.7 83 22 95/52 98 2.0 04/22/17 10:46 110/70 04/22/17 10:36 81 117/59 97 04/22/17 10:35 37.1 80 20 117/59 97 2.0 04/22/17 10:31 111/43 04/22/17 10:21 82 96 04/22/17 10:16 106/54 04/22/17 10:06 77 23 94 04/22/17 10:01 117/43 04/22/17 09:51 79 19 93 04/22/17 09:46 94/46 04/22/17 09:40 84 21 95 04/22/17 09:39 97/55 04/22/17 09:29 97 04/22/17 09:21 36.3 132 24 68/67 88 Room Air The patient is awake, alert and oriented 3, looks very pale and fatigued, normocephalic and atraumatic, lying in bed and in no acute distress. HEENT--PERRL, EOMI, mucous membranes and oropharynx dry. Neck--supple, no JVD or bruits, thyroid normal, trachea midline, no adenopathy. Heart--irregularly irregular with PVCs, no murmurs, rubs or gallops. Lungs--clear bilaterally with good air movement, no respiratory distress, no accessory muscle use. Abdomen--normal bowel sounds and soft, nontender and nondistended, no hernias or masses, no organomegaly. Extremities--no cyanosis, clubbing or edema. There are good distal pulses b/l. Dermatologic--normal skin turgor, very pale, warm and dry, no abnormal lymph nodes, no rash. Neurologic--cranial nerves II through XII grossly intact. Rheumatologic--normal range of motion, nontender, muscles and joints. Psychiatric--normal affect. Diagnostics Laboratory Results Results Past 24 Hours Test 04/22/17 09:38 04/22/17 09:43 04/22/17 11:20 Range/Units White Blood Count 14.77 4.8-10.8 K/uL Red Blood Count 2.91 4.2-5.4 M/uL Hemoglobin 8.6 12.0-16.0 g/dL Hematocrit 26.7 37-47 % Mean Corpuscular Volume 91.8 80-100 fL Mean Corpuscular Hemoglobin 29.6 25-34 pg Mean Corpuscular Hemoglobin Concent 32.2 32-36 g/dl Platelet Count 264 130-400 K/uL Mean Platelet Volume 11.1 7.4-10.4 fL Neutrophils (%) (Auto) 73.3 % Lymphocytes (%) (Auto) 17.4 % Monocytes (%) (Auto) 7.2 % Eosinophils (%) (Auto) 1.2 % Basophils (%) (Auto) 0.2 % Neutrophils # (Auto) 10.82 1.4-6.5 K/uL Lymphocytes # (Auto) 2.57 1.2-3.4 K/uL Monocytes # (Auto) 1.07 0.11-0.59 K/uL Eosinophils # (Auto) 0.17 0-0.5 K/uL Basophils # (Auto) 0.03 0-0.2 K/uL Bedside Hemoglobin 8.5 12.0-16.0 g/dl Bedside Hematocrit 25 37-47 % RDW Standard Deviation 48.8 36.4-46.3 fL RDW Coefficient of Variation 14.5 11.5-14.5 % Immature Granulocyte % (Auto) 0.7 % Immature Granulocyte # (Auto) 0.11 0.00-0.02 K/uL Platelet Estimate NORMAL Prothrombin Time 11.4 9.0-12.0 SECONDS Prothromb Time International Ratio 1.1 0.9-1.1 Activated Partial Thromboplast Time 21.8 21.0-31.0 SECONDS Partial Thromboplastin Ratio 0.8 Bedside Sodium 141 135-144 mEq/L Sodium Level 143 136-145 mmol/L Bedside Potassium 3.8 3.3-5.0 mEq/L Potassium Level 3.5 3.5-5.1 mmol/L Bedside Chloride 108 101-112 mEq/L Chloride Level 111 98-107 mmol/L Carbon Dioxide Level 21 21-32 mmol/L Bedside Total CO2 20 24-31 mEq/l Anion Gap 19.0 16-25 mmol/L Bedside Blood Urea Nitrogen 82 7-18 mg/dl Blood Urea Nitrogen 79 7-18 mg/dl Creatinine 1.30 0.60-1.20 mg/dl Bedside Creatinine 1.1 0.6-1.3 mg/dl Est Creatinine Clear Calc Drug Dose 33.8 ml/min Estimated GFR () 42.7 Estimated GFR (Non- 36.9 BUN/Creatinine Ratio 60.4 10-20 Bedside Glucose (other) 145 70-99 mg/dl Random Glucose 142 70-99 mg/dl Calcium Level 9.0 8.5-10.1 mg/dl Bedside Ionized Calcium (Bola) 1.07 1.12-1.32 mmol/l Magnesium Level 1.7 1.8-2.4 mg/dl Total Bilirubin 0.4 0.2-1 mg/dl Direct Bilirubin 0.1 0-0.2 mg/dl Aspartate Amino Transf (AST/SGOT) 9 15-37 U/L Alanine Aminotransferase (ALT/SGPT) 14 12-78 U/L Alkaline Phosphatase 40 45-117 U/L Total Creatine Kinase 23 26-192 U/L Creatine Kinase MB 0.5 0.5-3.6 ng/ml Creatine Kinase MB Ratio 2.2 0-3.0 Troponin I < 0.015 0-0.045 ng/ml Total Protein 6.1 6.4-8.2 gm/dl Albumin 3.0 3.4-5.0 gm/dl Lipase 85 73-393 U/L Bedside Lactic Acid Venous 2.94 0.90-1.70 mmol/L Diagnostic Radiology Patient Name: MATA VICENTE Unit Number: [id number] Dictated: 04/22/171021 Transcribed: 04/22/171021 EV Printed Date/Time: [~ rep prt dt]/[~ rep prt tm] [~ rep ct labl] - [~ rep ct ivnm] [facility] [place] [address] Dictated: 04/22/171021 Transcribed: 04/22/17 102 EV Printed Date/Time: [~ rep prt dt]/[~ rep prt tm] [~ rep ct labl] - [~ rep ct ivnm] CLINICAL HISTORY: Generalized abdominal pain. FINDINGS: An AP, portable, upright chest radiograph is compared to chest x-ray and chest CT dated 03/10/2016. The examination is degraded by portable technique and patient rotation. The heart is enlarged and there is atherosclerotic calcification of the thoracic aorta. The pulmonary vasculature is noncongested. The mitral annulus is densely calcified. Chronic interstitial thickening is similar to previous. There is minimal left basilar atelectasis. The lungs and pleural spaces are otherwise clear. No pneumothorax is seen. The skeletal structures are osteopenic. The bony thorax is grossly intact. Surgical clips are noted in the right axilla. IMPRESSION: Cardiomegaly with no acute cardiopulmonary abnormality. Electronically signed by: Vinnie Thacker M.D. 04/22/2017 10:23 AM Dictated Date/Time: 04/22/2017 10:22 AM The status of this report is Signed. Draft = Not yet reviewed or approved by Radiologist. Signed = Reviewed and approved by Radiologist. <AttendingPhy></AttendingPhy> <FamilyPhy>Andry Griffin M.D.</FamilyPhy> < PrimaryPhy>Andry Griffin M.D.</PrimaryPhy> <UnitNumber>[id number]</UnitNumber > <VisitNumber>[id number]</VisitNumber> <PatientName>MATA VICENTE</ PatientName> <DateOfBirth>1930</DateOfBirth> <Location>C.EDB</Location> < ServiceDate>04/22/17</ServiceDate> <MNE>ESINDI</MNE> <OrderingPhy>Jomar Hussein D.O.</OrderingPhy> <OrderingPhyMNE>f rep ord dr garcia</OrderingPhyMNE> <DictatingPhyMNE>f rep dict dr garcia</DictatingPhyMNE> <CCListMNE>f rep ct jose</ CCListMNE> <AdmittingPhyMNE>f pt admit dr garcia</AdmittingPhyMNE> <AttendingPhyMNE >f pt attend dr garcia</AttendingPhyMNE> <ConsultingPhyMNE>f pt consult dr garcia</ConsultingPhyMNE> <FamilyPhyMNE>f pt fam dr garcia</FamilyPhyMNE> <OtherPhyMNE>f pt other dr garcia</OtherPhyMNE> < PrimaryPhyMNE>f pt prim care dr garcia</PrimaryPhyMNE> <ReferringPhyMNE>f pt referring dr garcia</ReferringPhyMNE> EKG EKG shows normal sinus rhythm at 97 bpm, and complete right bundle branch block , left anterior fascicular block, prolonged QT, no acute ST-T changes. Impression Assessment and Plan Upper GI bleed with symptomatic anemia--the patient will be admitted to the telemetry unit for close oxygen monitoring and frequent H&H's every 6 hours. She presently is being transfused unit of platelets, and will start with transfusion 1 unit of packed her blood cells. Her present hemoglobin is 8.6, which is down 2 from previous, but is likely significantly lower due to vasoconstriction. With her recent cardiac stent 2 months ago, her hemoglobin target is 10. We'll consult Dr. Chu is on for gastroenterology. We'll continue the Protonix drip begun in the emergency department, and she should have further bleeding, we'll start octreotide at that time. CAD/hypertension/coronary artery stents--patient will be nothing by mouth due to bleeding. We'll hold Crixivan, aspirin, Plavix, lisinopril, metoprolol succinate. We'll have available Lopressor IV when necessary department should become elevated. Her best treatment at this point is to target a hemoglobin to be at least 10. Hyperlipidemia--hold atorvastatin 40 mg by mouth every morning. Cerebrovascular disease--for now antiplatelet agents need to be on hold. Level of Care Telemetry Advanced Directives Existing Advance Directive: No Existing Living Will: No Existing Power of Curing Oven Attendant: No Resuscitation Status FULL RESUSCITATION VTE Prophylaxis VTE Risk Assessment Done? Y/N: Yes Risk Level: Moderate Given or contraindicated: SCD's (Eliquis is being stopped due to acute bleed)
[2017-04-22] MEDS: MoRPHine SULFATE 2 MG/ML CARP IV PRN ×2 (12:12→17:09)
[2017-04-22] MEDS ORDERED: LEVALBUTEROL 1.25MG/0.5ML NEB INH PRN (12:15)
[2017-04-22] MEDS ORDERED: IPRATROPIUM BROMIDE NEB SOLN 0.02% 2.5 ML VIAL INH PRN (12:15)
[2017-04-22 12:25] LABS: HEMATOCRIT 20.9 % (37-47)
--- NOTE | 2017-04-22 15:16 | Gastrointestinal Consultation ---
Gastrointestinal Consultation Date of Consultation: Apr 22, 2017 Attending Physician: DR Hassan Consulting Physician: Dr Silvestre Chu Reason for Consultation: Melena History of Present Illness Patient is a 87 year old female with CC of black stools. Daughter with patient. HPI Pt wiht history of GI bleed 4-5 years ago requiring transfusion with unknown workup. Did not see any GI records in [facility] or [place] EMR. She states had distant EGD and colon unknown results. She has vertigo and became dizzy last 3 days. Also n/v and loose (baseline constipation) black melenic stools last 3 days. Subjective hot and cold. No change in weight, no dysphagia, No red stools. No abd pain. Baseline Hgb 13.1 02/2016 then 10.9 on 02/10/17 then 8.6 on admit. Last stool this am 0800. She had recent cardiac stent. Is not supposed to take ASA apparently but takes it intermittently is she doesnt feel right because good "to prevent strokes". She is on Plavix and Eliquis for recent cardiac stenting couple months ago. CXR on admit chronic interstitial changes and cardiomegaly. Hypotension in ER now improved. Past Medical/Surgical History Medical Problems: (1) Anemia Status: Acute (2) Hypotension Status: Acute (3) On continuous oral anticoagulation Status: Acute (4) Right arm weakness Status: Acute (5) Upper GI bleeding Status: Acute Family History Patient reports no known family medical history. Social History Smoking Status: Former Smoker Drug Use: none Marital Status: Occupation Status: retired Allergies Coded Allergies: Doxycycline (Verified Adverse Reaction, Mild, n/v, 11/29/16) Current Medications Home Meds and Scripts Medications Dose Route/Sig Max Daily Dose Days Date Category [place] 10/325 Tab (Acetaminophen/Hydrocodone Bitart) 1 Tab Tab 1 Tab PO TID PRN 04/22/17 Reported Nitrostat (Nitroglycerin) 0.4 Mg/1 Tab Subl 0.4 Mg SL UD PRN 30 02/10/17 Rx Atorvastatin Calcium (Atorvastatin) 40 Mg Tab 40 Mg PO QAM 30 02/10/17 Rx Clopidogrel (Clopidogrel Bisulfate) 75 Mg Tab 75 Mg PO QAM 30 02/10/17 Rx Eliquis (Apixaban) 2.5 Mg Tab 5 Mg PO BID 30 02/10/17 Rx Multivitamin (Multivitamins) Tab 1 Tab PO DAILY 02/09/17 Reported Neurontin (Gabapentin) 100 Mg Cap 200 Mg PO HS 02/09/17 Reported Vitamin D3 (Cholecalciferol) 1,000 Unit Tab 2 Tab PO QAM 90 11/27/16 Reported Zestril (Lisinopril) 10 Mg Tab 10 Mg PO QAM 11/27/16 Reported Os-Josiah 500 Plus D (Calcium/Vitamin D) Tab 1 Tab PO BID 11/27/16 Reported Metoprolol Succinate ER (Metoprolol Succinate) 25 Mg Tabcr 25 Mg PO QAM 03/11/16 Rx Lasix (Furosemide) 20 Mg Tab 20 Mg PO DAILY PRN 02/22/16 Reported Ativan (Lorazepam) 0.5 Mg Tab 0.5 Mg PO DAILY PRN 02/22/16 Reported Ventolin (Albuterol) Inh 2 Puffs INH QID PRN 5 02/19/16 Reported Meclizine Hcl 25 Mg Tab 25 Mg PO TID PRN 01/02/13 Reported Review of Systems ROS times 10 negative. Physical Exam Date Time Temp Pulse Resp B/P (MAP) Pulse Ox O2 Delivery O2 Flow Rate FiO2 04/22/17 14:00 36.7 68 14 126/53 99 2.0 04/22/17 13:30 36.8 70 16 135/48 99 2.0 04/22/17 13:00 36.8 69 16 121/64 98 2.0 04/22/17 12:45 36.4 72 16 126/52 93 2.0 04/22/17 12:30 36.8 75 18 135/59 97 2.0 04/22/17 12:00 Nasal Cannula 2.0 04/22/17 12:00 36.9 70 16 139/55 (83) 99 Nasal Cannula 2.0 04/22/17 11:36 82 17 96 04/22/17 11:31 118/55 04/22/17 11:21 78 21 04/22/17 11:16 116/80 04/22/17 11:15 73 20 116/80 95 04/22/17 11:06 76 24 04/22/17 11:02 127/93 04/22/17 11:00 98 Room Air 2.0 04/22/17 10:57 36.7 83 22 95/52 98 2.0 04/22/17 10:54 95/52 04/22/17 10:51 80 28 96 04/22/17 10:46 110/70 04/22/17 10:36 81 117/59 97 04/22/17 10:35 37.1 80 20 117/59 97 2.0 04/22/17 10:31 111/43 04/22/17 10:21 82 96 04/22/17 10:16 106/54 04/22/17 10:06 77 23 94 04/22/17 10:01 117/43 04/22/17 09:51 79 19 93 04/22/17 09:46 94/46 04/22/17 09:40 84 21 95 04/22/17 09:39 97/55 04/22/17 09:29 97 04/22/17 09:21 36.3 132 24 68/67 88 Room Air General Appearance: WD/WN, no apparent distress Eyes: normal inspection, PERRL ENT: hearing grossly normal, pharynx normal Neck: supple, no adenopathy, thyroid normal Respiratory/Chest: lungs clear, no respiratory distress Cardiovascular: no edema, no murmur Abdomen: normal bowel sounds, non tender, soft, no organomegaly Extremities: non-tender Neurologic/Psych: drug and alcohol counselor II-XII nml as tested, oriented x 3 Skin: normal color, no jaundice, warm/dry Laboratory Results Last 24 Hours Test 04/22/17 09:38 04/22/17 09:43 04/22/17 11:25 White Blood Count 14.77 K/uL Red Blood Count 2.91 M/uL Hemoglobin 8.6 g/dL 6.9 g/dL Hematocrit 26.7 % 20.9 % Mean Corpuscular Volume 91.8 fL Mean Corpuscular Hemoglobin 29.6 pg Mean Corpuscular Hemoglobin Concent 32.2 g/dl Platelet Count 264 K/uL Mean Platelet Volume 11.1 fL Neutrophils (%) (Auto) 73.3 % Lymphocytes (%) (Auto) 17.4 % Monocytes (%) (Auto) 7.2 % Eosinophils (%) (Auto) 1.2 % Basophils (%) (Auto) 0.2 % Neutrophils # (Auto) 10.82 K/uL Lymphocytes # (Auto) 2.57 K/uL Monocytes # (Auto) 1.07 K/uL Eosinophils # (Auto) 0.17 K/uL Basophils # (Auto) 0.03 K/uL Bedside Hemoglobin 8.5 g/dl Bedside Hematocrit 25 % RDW Standard Deviation 48.8 fL RDW Coefficient of Variation 14.5 % Immature Granulocyte % (Auto) 0.7 % Immature Granulocyte # (Auto) 0.11 K/uL Platelet Estimate NORMAL Prothrombin Time 11.4 SECONDS Prothromb Time International Ratio 1.1 Activated Partial Thromboplast Time 21.8 SECONDS Partial Thromboplastin Ratio 0.8 Bedside Sodium 141 mEq/L Sodium Level 143 mmol/L Bedside Potassium 3.8 mEq/L Potassium Level 3.5 mmol/L Bedside Chloride 108 mEq/L Chloride Level 111 mmol/L Carbon Dioxide Level 21 mmol/L Bedside Total CO2 20 mEq/l Anion Gap 19.0 mmol/L Bedside Blood Urea Nitrogen 82 mg/dl Blood Urea Nitrogen 79 mg/dl Creatinine 1.30 mg/dl Bedside Creatinine 1.1 mg/dl Est Creatinine Clear Calc Drug Dose 33.8 ml/min Estimated GFR () 42.7 Estimated GFR (Non- 36.9 BUN/Creatinine Ratio 60.4 Bedside Glucose (other) 145 mg/dl Random Glucose 142 mg/dl Calcium Level 9.0 mg/dl Bedside Ionized Calcium (Bola) 1.07 mmol/l Magnesium Level 1.7 mg/dl Total Bilirubin 0.4 mg/dl Direct Bilirubin 0.1 mg/dl Aspartate Amino Transf (AST/SGOT) 9 U/L Alanine Aminotransferase (ALT/SGPT) 14 U/L Alkaline Phosphatase 40 U/L Total Creatine Kinase 23 U/L Creatine Kinase MB 0.5 ng/ml Creatine Kinase MB Ratio 2.2 Troponin I < 0.015 ng/ml Total Protein 6.1 gm/dl Albumin 3.0 gm/dl Lipase 85 U/L Bedside Lactic Acid Venous 2.94 mmol/L Impression Melena Acute blood loss anemia Plan Plan PPI drip. Clear liquid diet for now. EGD timing depending on ongoing bleeding but ideally once Eliquis anticoagulation is worn off. Will make NPO post MN in case need to do Sunday but Sunday would really be better from Eliquis stopping standpoint in order to do therapeutics. Follow H and H and transfuse prn.
[2017-04-22 16:30] LABS: URINE APPEARANCE CLEAR (CLEAR); URINE BILIRUBIN NEG (NEG); URINE COLOR YELLOW; URINE EPITHELIAL CELL AUTO >30 /lpf (0-5); URINE NITRITE NEG (NEG); URINE SPECIFIC GRAVITY 1.023 (1.000-1.030); UROBILINOGEN NEG (NEG)
[2017-04-22 16:34] LABS: MANUAL MICROSCOPIC REQUIRED? NO; REVIEW REQ? NO
[2017-04-22 18:41] LABS: HEMATOCRIT 26.9 % (37-47)
[2017-04-22] MEDS: NSS + 20MEQ KCL 1000ML 1,000 ML IV SCH (19:28)
[2017-04-22 19:59] LABS: CKMB/CK RATIO 3.1 (0-3.0)
[2017-04-22] MEDS: MoRPHine SULFATE 4 MG/ML 1 ML CARP\\VIAL IV PRN (20:31)
[2017-04-22] MEDS ORDERED: NURSING VERBAL MED ORDER ONE (20:45)
[2017-04-22] MEDS: MAGNESIUM SULFATE 1GM / D5W 1 GM in PREMIXED IN D5W 100 ML IV SCH ×2 (20:54→22:08)
[2017-04-22 23:11] LABS: HEMATOCRIT 25.5 % (37-47)
[2017-04-23] VITALS (11 sets, daily range): BP systolic 105–154; BP diastolic 37–82; PULSE 61–100; TEMP 36.4–36.8; O2SAT 95–99
[2017-04-23] MEDS: PANTOprazole INJ 40 MG in DEXTROSE 5% 100ML IV SCH ×3 (01:28→10:28)
[2017-04-23 03:29] LABS: BASO % 0.1 %; BASO ABS # 0.01 K/uL (0-0.2); HEMATOCRIT 26.5 % (37-47); IG% 0.8 %; MEAN CELL VOLUME 89.8 fL (80-100); MEAN CORPUSCULAR HEMOGLOBIN 29.2 pg (25-34); MEAN CORPUSCULAR HGB CONC 32.5 g/dl (32-36); MEAN PLATELET VOLUME 9.9 fL (7.4-10.4); MONO % 13.9 %; NEUT % 62.2 %; PLATELET COUNT 180 K/uL (130-400); RED BLOOD COUNT 2.95 M/uL (4.2-5.4); WHITE BLOOD COUNT 9.51 K/uL (4.8-10.8)
[2017-04-23 03:49] LABS: BLOOD UREA NITROGEN 43 mg/dl (7-18); BUN/CREATININE RATIO 50.4 (10-20); CALCIUM 7.7 mg/dl (8.5-10.1); CARBON DIOXIDE 26 mmol/L (21-32); CHLORIDE 116 mmol/L (98-107); CREATININE 0.85 mg/dl (0.60-1.20); GLUCOSE 102 mg/dl (70-99); MAGNESIUM 2.3 mg/dl (1.8-2.4); POTASSIUM 3.9 mmol/L (3.5-5.1); SODIUM 148 mmol/L (136-145)
[2017-04-23 04:14] LABS: PARTIAL THROMBOPLASTIN RATIO 1.1; PROTHROMBIN TIME (PATIENT) 11.2 SECONDS (9.0-12.0)
[2017-04-23 04:38] LABS: COMPLETE YES
[2017-04-23] MEDS: NSS + 20MEQ KCL 1000ML 1,000 ML IV SCH ×3 (05:31→17:46)
--- NOTE | 2017-04-23 10:19 | Clinical Documentation Query ---
GERSON Posada : CLINICAL DOCUMENTATION QUERY Patient is an 87 year old female admitted with symptomatic acute blood loss anemia in the setting of GI bleeding in the setting of Eliquis, Plavix, and ASA. As appropriate, consider documentation as suggested below as this impacts severity of illness, risk of mortality, and DRG assignment. Thank you. In your clinical opinion is this patient being managed for: ( xxx ) Coagulation defects secondary to Eliquis, ASA, and Plavix with resultant GI bleed ( ) Other explanation of clinical findings (Please Explain) ( ) Unable to determine (Please Define) ( ) Need to Discuss ( ) Not Agree The medical record reflects the following clinical findings, treatment, and risk factors. Clinical Indicators: As above Treatment: Transfusion prn, GI consultation, PPI infusion, serial hematolgy, telemetry, pending EGD Risk Factors: Medication utilization as above, history of GI bleed CC: Bleeding d/t Therapeutic Anticoagulation Coding Clinic [id number], p14 Question: Should bleeding due to therapeutic anticoagulant be coded as a hemorrhagic disorder (category D68)? Answer: For the most part, "hemorrhagic disorder" or "coagulation defects" must be specifically diagnosed and documented by the provider, in order to assign codes at category D68, Other coagulation defects. However, for bleeding such as hemoptysis, hematuria, hematemesis, hematochezia, etc., that is associated with a drug, as part of anticoagulation therapy, assign code D68.32, Hemorrhagic disorder due to extrinsic circulating anticoagulants. This is supported by the inclusion term at D68.32 of "Drug-induced hemorrhagic disorder." The sequencing of code D68.32 and other codes describing the type or site of bleeding, (e.g., hemoptysis or hematuria), would be dependent on the circumstances of the admission. Please clarify and document your clinical opinion in the progress notes and discharge summary. Terms such as "probable", "suspected", "likely", "questionable", "possible", or "still to be ruled out" are acceptable. IF IN AGREEMENT, YOU MUST DOCUMENT ABOVE DIAGNOSTIC STATEMENT IN DAILY PROGRESS NOTES AND DISCHARGE SUMMARY. This document is not part of the patient's record. Thank You, Silvestre Parmar, RN [phone]
--- NOTE | 2017-04-23 12:11 | Endo History and Physical ---
History & Physical Date of Service: Apr 23, 2017. Chief Complaint: Melena Referring Physician: Ruiz Girffin History of Present Illness For EGD Past Medical History Hypertension, CVA/TIA Past Surgical History Hx Cardiac Surgery: No Hx Abdominal Surgery: Yes (GLENNA, APPY) Hx Post-Op Nausea and Vomiting: No Hx Cancer Surgery: Yes (RT MASTECTOMY (about 1996)) Hx Thoracic Surgery: No Hx Orthopedic: Yes (RT/LEFT KESHA, LUMBAR FUSION) Hx Urinary Tract Surgery: No Social History Smoking Status: Unknown if Ever Smoked Smokeless Tobacco Use: No Hx Substance Use: No Hx Alcohol Use: Yes (OCCASIONALLY) Allergies Coded Allergies: Doxycycline (Verified Adverse Reaction, Mild, n/v, 11/29/16) Current Medications Reported Home Medications Medications Dose Route/Sig Max Daily Dose Days Date Category [place] 10/325 Tab (Acetaminophen/Hydrocodone Bitart) 1 Tab Tab 1 Tab PO TID PRN 04/22/17 Reported Nitrostat (Nitroglycerin) 0.4 Mg/1 Tab Subl 0.4 Mg SL UD PRN 30 02/10/17 Rx Atorvastatin Calcium (Atorvastatin) 40 Mg Tab 40 Mg PO QAM 30 02/10/17 Rx Clopidogrel (Clopidogrel Bisulfate) 75 Mg Tab 75 Mg PO QAM 30 02/10/17 Rx Eliquis (Apixaban) 2.5 Mg Tab 5 Mg PO BID 30 02/10/17 Rx Multivitamin (Multivitamins) Tab 1 Tab PO DAILY 02/09/17 Reported Neurontin (Gabapentin) 100 Mg Cap 200 Mg PO HS 02/09/17 Reported Vitamin D3 (Cholecalciferol) 1,000 Unit Tab 2 Tab PO QAM 90 11/27/16 Reported Zestril (Lisinopril) 10 Mg Tab 10 Mg PO QAM 11/27/16 Reported Os-[place]iah 500 Plus D (Calcium/Vitamin D) Tab 1 Tab PO BID 11/27/16 Reported Metoprolol Succinate ER (Metoprolol Succinate) 25 Mg Tabcr 25 Mg PO QAM 03/11/16 Rx Lasix (Furosemide) 20 Mg Tab 20 Mg PO DAILY PRN 02/22/16 Reported Ativan (Lorazepam) 0.5 Mg Tab 0.5 Mg PO DAILY PRN 02/22/16 Reported Ventolin (Albuterol) Inh 2 Puffs INH QID PRN 5 02/19/16 Reported Meclizine Hcl 25 Mg Tab 25 Mg PO TID PRN 01/02/13 Reported Vital Signs Weight (Kilograms): 87.000 Height (Feet): 5 Height (Inches): 5.00 Date Time Temp Pulse Resp B/P (MAP) Pulse Ox O2 Delivery O2 Flow Rate FiO2 04/23/17 11:28 36.8 89 18 150/67 (94) 97 Room Air 04/23/17 08:58 36.8 77 18 105/37 Nasal Cannula 2.0 04/23/17 08:00 98 Room Air 2.0 04/23/17 07:30 36.8 77 18 105/37 (59) 98 2.0 04/23/17 04:13 36.6 64 16 154/49 (84) 97 Room Air 04/23/17 04:06 99 Nasal Cannula 2.0 04/23/17 00:04 36.8 61 16 124/82 (96) 95 Room Air 04/23/17 00:00 99 Nasal Cannula 2.0 04/22/17 22:33 99 Nasal Cannula 2.0 04/22/17 19:57 36.7 66 18 151/62 (91) 99 Nasal Cannula 2.0 04/22/17 17:00 36.8 65 20 146/58 95 2.0 04/22/17 16:00 Nasal Cannula 2.0 04/22/17 16:00 65 16 134/68 98 2.0 04/22/17 15:48 36.6 70 16 120/62 (81) 99 Nasal Cannula 2.0 04/22/17 15:30 36.5 70 20 118/43 99 2.0 04/22/17 15:15 64 16 128/50 100 2.0 04/22/17 15:00 36.6 70 16 119/73 99 2.0 04/22/17 14:00 36.7 68 14 126/53 99 2.0 04/22/17 13:30 36.8 70 16 135/48 99 2.0 04/22/17 13:00 36.8 69 16 121/64 98 2.0 04/22/17 12:45 36.4 72 16 126/52 93 2.0 04/22/17 12:30 36.8 75 18 135/59 97 2.0 Physical Exam General Appearance: WD/WN Respiratory/Chest: Respiratory effort: no dyspnea Cardiovascular: Apical Impulse: pertinent finding (stents) Abdomen: Inspection & Palpation: soft Assessment and Plan Melena for EGD
--- NOTE | 2017-04-23 12:11 | Hospitalist Progress Note ---
Hospitalist Progress Note Date of Service Apr 23, 2017. (Melyssa Castillo PA-C) Subjective Pt evaluation today including: conversation w/ patient, conversation w/ family , physical exam, chart review, lab review, review of studies Pain: None PO Intake: NPO Voiding: no voiding problems The patient was seen and examined this morning. Pt reports doing much better today compared to yesterday, she denies any abdominal pain, nausea, vomiting, or bowel movements since yesterday morning. She reports having 3 bowel movements yesterday morning which with were dark black and tarry. She is NPO for EGD scope today. Family is present at bedside and all their questions and concerns were addressed. Constitutional: No fever, No chills, No sweats, No fatigue Eyes: No diplopia ENT: No see HPI, No nasal symptoms, No sore throat Respiratory: No cough, No sputum, No shortness of breath Cardiovascular: No chest pain, No palpitations Abdomen: + see HPI, + GI bleeding Musculoskeletal: No joint pain, No muscle pain, No swelling Female : No dysuria, No hematuria Endo: No fatigue Skin: No rash, No itch (Melyssa Castillo PA-C) Objective Vital Signs Date Time Temp Pulse Resp B/P (MAP) Pulse Ox O2 Delivery O2 Flow Rate FiO2 04/23/17 11:28 36.8 89 18 150/67 (94) 97 Room Air 04/23/17 08:58 36.8 77 18 105/37 Nasal Cannula 2.0 04/23/17 08:00 98 Room Air 2.0 04/23/17 07:30 36.8 77 18 105/37 (59) 98 2.0 04/23/17 04:13 36.6 64 16 154/49 (84) 97 Room Air 04/23/17 04:06 99 Nasal Cannula 2.0 04/23/17 00:04 36.8 61 16 124/82 (96) 95 Room Air 04/23/17 00:00 99 Nasal Cannula 2.0 04/22/17 22:33 99 Nasal Cannula 2.0 04/22/17 19:57 36.7 66 18 151/62 (91) 99 Nasal Cannula 2.0 04/22/17 17:00 36.8 65 20 146/58 95 2.0 04/22/17 16:00 Nasal Cannula 2.0 04/22/17 16:00 65 16 134/68 98 2.0 04/22/17 15:48 36.6 70 16 120/62 (81) 99 Nasal Cannula 2.0 04/22/17 15:30 36.5 70 20 118/43 99 2.0 04/22/17 15:15 64 16 128/50 100 2.0 04/22/17 15:00 36.6 70 16 119/73 99 2.0 04/22/17 14:00 36.7 68 14 126/53 99 2.0 04/22/17 13:30 36.8 70 16 135/48 99 2.0 04/22/17 13:00 36.8 69 16 121/64 98 2.0 04/22/17 12:45 36.4 72 16 126/52 93 2.0 04/22/17 12:30 36.8 75 18 135/59 97 2.0 04/22/17 12:00 Nasal Cannula 2.0 04/22/17 12:00 36.9 70 16 139/55 (83) 99 Nasal Cannula 2.0 (Melyssa Castillo PA-C) Physical Exam General Appearance: WD/WN, no apparent distress, + pertinent finding ( overweight) Eyes: PERRL, EOMI ENT: hearing grossly normal, pharynx normal Neck: supple, no JVD Respiratory/Chest: chest non-tender, lungs clear, no respiratory distress, no accessory muscle use Cardiovascular: regular rate, rhythm, no JVD, no murmur Abdomen: normal bowel sounds, non tender, soft Extremities: non-tender, no pedal edema, no calf tenderness Neurologic/Psychiatric: alert, normal mood/affect, oriented x 3 Skin: normal color, warm/dry (Mleyssa Castillo PA-C) Laboratory Results Last 24 Hours Test 04/22/17 16:05 04/22/17 18:31 04/22/17 19:22 04/22/17 22:55 Urine Color YELLOW Urine Appearance CLEAR Urine pH 5.0 Urine Specific [place] 1.023 Urine Protein NEG Urine Glucose (UA) NEG Urine Ketones NEG Urine Occult Blood TRACE Urine Nitrite NEG Urine Bilirubin NEG Urine Urobilinogen NEG Urine Leukocyte Esterase MODERATE Urine WBC (Auto) 10-30 /hpf Urine RBC (Auto) 0-4 /hpf Urine Hyaline Casts (Auto) 1-5 /lpf Urine Epithelial Cells (Auto) >30 /lpf Urine Bacteria (Auto) NEG Hemoglobin 8.8 g/dL 8.7 g/dL Hematocrit 26.9 % 25.5 % Total Creatine Kinase 35 U/L Creatine Kinase MB 1.1 ng/ml Creatine Kinase MB Ratio 3.1 Troponin I < 0.015 ng/ml Test 04/23/17 03:21 04/23/17 11:15 White Blood Count 9.51 K/uL Red Blood Count 2.95 M/uL Hemoglobin 8.6 g/dL 8.6 g/dL Hematocrit 26.5 % 28.0 % Mean Corpuscular Volume 89.8 fL Mean Corpuscular Hemoglobin 29.2 pg Mean Corpuscular Hemoglobin Concent 32.5 g/dl Platelet Count 180 K/uL Mean Platelet Volume 9.9 fL Neutrophils (%) (Auto) 62.2 % Lymphocytes (%) (Auto) 21.0 % Monocytes (%) (Auto) 13.9 % Eosinophils (%) (Auto) 2.0 % Basophils (%) (Auto) 0.1 % Neutrophils # (Auto) 5.91 K/uL Lymphocytes # (Auto) 2.00 K/uL Monocytes # (Auto) 1.32 K/uL Eosinophils # (Auto) 0.19 K/uL Basophils # (Auto) 0.01 K/uL RDW Standard Deviation 49.2 fL RDW Coefficient of Variation 15.2 % Immature Granulocyte % (Auto) 0.8 % Immature Granulocyte # (Auto) 0.08 K/uL Red Blood Cell Morphology Unremarkable Prothrombin Time 11.2 SECONDS Prothromb Time International Ratio 1.0 Activated Partial Thromboplast Time 28.4 SECONDS Partial Thromboplastin Ratio 1.1 Sodium Level 148 mmol/L Potassium Level 3.9 mmol/L Chloride Level 116 mmol/L Carbon Dioxide Level 26 mmol/L Anion Gap 6.0 mmol/L Blood Urea Nitrogen 43 mg/dl Creatinine 0.85 mg/dl Est Creatinine Clear Calc Drug Dose 51.7 ml/min Estimated GFR () 71.4 Estimated GFR (Non- 61.6 BUN/Creatinine Ratio 50.4 Random Glucose 102 mg/dl Calcium Level 7.7 mg/dl Magnesium Level 2.3 mg/dl Total Creatine Kinase 25 U/L Creatine Kinase MB 1.0 ng/ml Creatine Kinase MB Ratio 4.0 Troponin I < 0.015 ng/ml (Melyssa Csatillo PA-C) Assessment and Plan This is an 87 F with PMHx of afib and CAD s/p stenting on eliquis and plavix admitted with GI bleed Upper GI bleed with symptomatic anemia - Continue H&H's every 6 hours. - S/p 1 unit of platelets, and 2 U PRBCs. - Pt had recent cardiac stent 2 months ago, her hemoglobin target is 10. - GI consulted, plan for EGD today by Dr. Holloway, continue the Protonix drip- can switch to Po pending EGD results CAD/hypertension/coronary artery stents- - NPO d/t bleed - Hold Eliquis, aspirin, Plavix, lisinopril, metoprolol succinate. We'll have available Lopressor IV when necessary department should become elevated. Her best treatment at this point is to target a hemoglobin to be at least 10. - Pt reports taking full dose aspirin once or twice every 2 weeks for headache. Hyperlipidemia -hold atorvastatin 40 mg QAM Cerebrovascular disease -for now antiplatelet agents need to be on hold. DVT ppx: Teds, SCDs, no chemical anticoagulation CODE STATUS: Full CODE Disposition: From home, discharge likely within 1-2 days pending EGD results. (Melyssa Castillo PA-C) ANUEL Physician Supervision Note: I interviewed and examined the patient. Discussed with Melyssa Castillo PAC and agree with findings and plan as documented in the note. Any exceptions or clarifications are listed here: None Patient seen post EGD which revealed a clean-based ulcer she is doing well, I discussed her antiplatelet and anticoagulation regimen with her electrical research engineer who recommends to hold full anticoagulation at this time until bleeding risk from her ulcer is less but to begin her antiplatelet therapy. Vital signs are reviewed and stable Cardiac exam sounds regular although she is a history of A. fib lungs are clear without wheezes or crackles abdomen is soft NABS 87-year-old female here with acute blood loss anemia from a clean-based duodenal ulcer encouraged by anticoagulation(asa, plavix and eliquis) and nonsteroidal treatment post stent Continue protonic strip following blood counts if stable reintroduce antiplatelet therapy April 24 Documented By: Larry Laboy (Larry Laboy M.D.)
--- NOTE | 2017-04-23 12:25 | Clinical Documentation Query ---
KEVIN Car : CLINICAL DOCUMENTATION QUERY Patient is an 87 year old female admitted with symptomatic acute blood loss anemia in the setting of GI bleeding in the setting of Eliquis, Plavix, and ASA. As appropriate, consider documentation as suggested below as this impacts severity of illness, risk of mortality, and DRG assignment. Thank you. In your clinical opinion is this patient being managed for: ( x ) Coagulation defects secondary to Eliquis, ASA, and Plavix with resultant GI bleed ( ) Other explanation of clinical findings (Please Explain) ( ) Unable to determine (Please Define) ( ) Need to Discuss ( ) Not Agree The medical record reflects the following clinical findings, treatment, and risk factors. Clinical Indicators: As above Treatment: Transfusion prn, GI consultation, PPI infusion, serial hematolgy, telemetry, pending EGD Risk Factors: Medication utilization as above, history of GI bleed CC: Bleeding d/t Therapeutic Anticoagulation [facility]oding [facility] [id number], p14 Question: Should bleeding due to therapeutic anticoagulant be coded as a hemorrhagic disorder (category D68)? Answer: For the most part, "hemorrhagic disorder" or "coagulation defects" must be specifically diagnosed and documented by the provider, in order to assign codes at category D68, Other coagulation defects. However, for bleeding such as hemoptysis, hematuria, hematemesis, hematochezia, etc., that is associated with a drug, as part of anticoagulation therapy, assign code D68.32, Hemorrhagic disorder due to extrinsic circulating anticoagulants. This is supported by the inclusion term at D68.32 of "Drug-induced hemorrhagic disorder." The sequencing of code D68.32 and other codes describing the type or site of bleeding, (e.g., hemoptysis or hematuria), would be dependent on the circumstances of the admission. Please clarify and document your clinical opinion in the progress notes and discharge summary. Terms such as "probable", "suspected", "likely", "questionable", "possible", or "still to be ruled out" are acceptable. IF IN AGREEMENT, YOU MUST DOCUMENT ABOVE DIAGNOSTIC STATEMENT IN DAILY PROGRESS NOTES AND DISCHARGE SUMMARY. This document is not part of the patient's record. Thank You, Silvestre Parmar, RN [phone]
[2017-04-23] MEDS ORDERED: PROPOFOL IV EMULSION 10 MG/ML 20 ML VIAL IV ONE (12:27)
[2017-04-23] MEDS ORDERED: LIDOCAINE HCL 2% 2 ML VIAL (20MG/ML) ONE (12:27)
--- NOTE | 2017-04-23 12:49 | Discharge Instructions ---
Endoscopy Patient Instructions Date / Procedure(s) Performed Apr 23, 2017. EGD Allergy Information Coded Allergies: Doxycycline (Verified Adverse Reaction, Mild, n/v, 11/29/16) Discharge Date / Findings Apr 23, 2017. Duodenal ulcer Medication Instructions Restart Stopped Medication(s): resume meds Current Inpatient Medications Medications (Trade) Dose Ordered Sig/Ron Route Start Time Stop Time Status Last Admin Dose Admin Pantoprazole Sodium 40 mg/ Dextrose 100 ml @ 20 mls/hr Q5H IV 04/22/17 10:00 05/22/17 09:59 04/23/17 10:28 20 MLS/HR Potassium Chloride/Sodium Chloride 1,000 ml @ 100 mls/hr Q10H IV 04/22/17 12:30 05/22/17 12:29 04/23/17 05:31 100 MLS/HR Ondansetron HCl (Zofran Inj) 4 mg Q6H PRN IV 04/22/17 11:30 05/22/17 11:29 04/22/17 13:36 4 MG Albuterol (Ventolin Hfa Inhaler) 2 puffs QID PRN INH 04/22/17 11:30 05/22/17 11:29 Morphine Sulfate (MoRPHine SULFATE INJ) 2 mg Q2H PRN IV 04/22/17 12:00 05/06/17 11:59 04/22/17 17:09 2 MG Morphine Sulfate (MoRPHine SULFATE INJ) 4 mg Q2H PRN IV 04/22/17 12:15 05/06/17 12:14 04/22/17 20:31 4 MG Ipratropium [place] (Atrovent 0.02% 0.5MG/2.5ML Neb) 0.5 mg Q2H PRN INH 04/22/17 12:15 05/22/17 12:14 Levalbuterol (Xopenex 1.25MG/ 0.5ML Neb) 1.25 mg Q2H PRN INH 04/22/17 12:15 05/22/17 12:14 Heparin Sodium (Porcine) (Heparin 10 Unit/ ml 5 ml Flush) 5 ml PRN PRN FLUSH 04/23/17 00:45 05/23/17 00:44 Provider Instructions Activity Restrictions - No exercising or heavy lifting for 24 hours. - Do not drink alcohol the day of the procedure. - Do not drive a car or operate machinery until the day after the procedure. - Do not make any important decisions or sign important papers in 24 hours after the procedure. Following Day: - Return to full activity which may include returning to work/school. Diet Start your diet with liquids and light foods (jello, soup, juice, toast). Then eat your usual diet if not nauseated. Treatment For Common After Affects For mild abdominal pain, bloating, or excessive gas: - Rest - Eat lightly - Lie on right side Follow-Up Information Follow-up with as scheduled Anesthesia Information What You Should Know You have had a procedure that required some medicine to reduce anxiety and discomfort. This treatment is called moderate sedation. After receiving the treatment, you may be sleepy, but you will be able to breathe on your own. The effects of the treatment may last for several hours. Follow these instructions along with Activity/Diet recommendations noted above: * Do NOT do anything where dizziness or clumsiness would be dangerous. * Rest quietly at home today, then you can be up and about tomorrow. * Have a responsible person stay with you the rest of today. * You may have had an I.V. today. If so, you may take the dressing off later today. Recommendations Call your doctor if: * Trouble breathing * Continuous vomiting for more than 24 hours * Temperature above 101 degrees * Severe abdominal pain or bloating * Pain not relieved by pain medicine ordered * There is increased drainage or redness from any incision * A large amount of rectal bleeding greater than 2-3 tablespoons. (If you had a polyp/s removed or have hemorrhoids, a small amount of blood - from the rectum is to be expected.) * You have any unanswered questions or concerns. IN THE EVENT OF A SERIOUS EMERGENCY, GO TO THE NEAREST EMERGENCY ROOM Your discharge instructions were prepared by provider Charanjit Holloway. Patient Instructions Signature Page Jessica Urrutia Patient (or Guardian) Signature/Date: I have read and understand the instructions given to me by my caregivers. Caregiver/RN/Doctor Signature/Date: The above-named patient and/or guardian has received patient instructions on this date. + Original Patient Signature Page (only) stays with chart. Please make copy for patient.
--- NOTE | 2017-04-23 12:56 | Gastroenterology Progress Note ---
Progress Note Date of Service: Apr 23, 2017 Subjective Pt evaluation today including: conversation w/ patient, chart review Medications Current Inpatient Medications Medications (Trade) Dose Ordered Sig/Ron Route Start Time Stop Time Status Last Admin Dose Admin Pantoprazole Sodium 40 mg/ Dextrose 100 ml @ 20 mls/hr Q5H IV 04/22/17 10:00 05/22/17 09:59 04/23/17 10:28 20 MLS/HR Potassium Chloride/Sodium Chloride 1,000 ml @ 100 mls/hr Q10H IV 04/22/17 12:30 05/22/17 12:29 04/23/17 05:31 100 MLS/HR Ondansetron HCl (Zofran Inj) 4 mg Q6H PRN IV 04/22/17 11:30 05/22/17 11:29 04/22/17 13:36 4 MG Albuterol (Ventolin Hfa Inhaler) 2 puffs QID PRN INH 04/22/17 11:30 05/22/17 11:29 Morphine Sulfate (MoRPHine SULFATE INJ) 2 mg Q2H PRN IV 04/22/17 12:00 05/06/17 11:59 04/22/17 17:09 2 MG Morphine Sulfate (MoRPHine SULFATE INJ) 4 mg Q2H PRN IV 04/22/17 12:15 05/06/17 12:14 04/22/17 20:31 4 MG Ipratropium [place] (Atrovent 0.02% 0.5MG/2.5ML Neb) 0.5 mg Q2H PRN INH 04/22/17 12:15 05/22/17 12:14 Levalbuterol (Xopenex 1.25MG/ 0.5ML Neb) 1.25 mg Q2H PRN INH 04/22/17 12:15 05/22/17 12:14 Heparin Sodium (Porcine) (Heparin 10 Unit/ ml 5 ml Flush) 5 ml PRN PRN FLUSH 04/23/17 00:45 05/23/17 00:44 Objective Vital Signs Date Time Temp Pulse Resp B/P (MAP) Pulse Ox O2 Delivery O2 Flow Rate FiO2 04/23/17 12:10 36.7 84 18 141/59 (86) 97 Room Air 04/23/17 11:28 36.8 89 18 150/67 (94) 97 Room Air 04/23/17 08:58 36.8 77 18 105/37 Nasal Cannula 2.0 04/23/17 08:00 98 Room Air 2.0 04/23/17 07:30 36.8 77 18 105/37 (59) 98 2.0 04/23/17 04:13 36.6 64 16 154/49 (84) 97 Room Air 04/23/17 04:06 99 Nasal Cannula 2.0 04/23/17 00:04 36.8 61 16 124/82 (96) 95 Room Air 04/23/17 00:00 99 Nasal Cannula 2.0 04/22/17 22:33 99 Nasal Cannula 2.0 04/22/17 19:57 36.7 66 18 151/62 (91) 99 Nasal Cannula 2.0 04/22/17 17:00 36.8 65 20 146/58 95 2.0 04/22/17 16:00 Nasal Cannula 2.0 04/22/17 16:00 65 16 134/68 98 2.0 04/22/17 15:48 36.6 70 16 120/62 (81) 99 Nasal Cannula 2.0 04/22/17 15:30 36.5 70 20 118/43 99 2.0 04/22/17 15:15 64 16 128/50 100 2.0 04/22/17 15:00 36.6 70 16 119/73 99 2.0 04/22/17 14:00 36.7 68 14 126/53 99 2.0 04/22/17 13:30 36.8 70 16 135/48 99 2.0 04/22/17 13:00 36.8 69 16 121/64 98 2.0 Physical Exam General Appearance: WD/WN Abdomen: normal bowel sounds, non tender Laboratory Results Last 24 Hours Test 04/22/17 16:05 04/22/17 18:31 04/22/17 19:22 04/22/17 22:55 Urine Color YELLOW Urine Appearance CLEAR Urine pH 5.0 Urine Specific [place] 1.023 Urine Protein NEG Urine Glucose (UA) NEG Urine Ketones NEG Urine Occult Blood TRACE Urine Nitrite NEG Urine Bilirubin NEG Urine Urobilinogen NEG Urine Leukocyte Esterase MODERATE Urine WBC (Auto) 10-30 /hpf Urine RBC (Auto) 0-4 /hpf Urine Hyaline Casts (Auto) 1-5 /lpf Urine Epithelial Cells (Auto) >30 /lpf Urine Bacteria (Auto) NEG Hemoglobin 8.8 g/dL 8.7 g/dL Hematocrit 26.9 % 25.5 % Total Creatine Kinase 35 U/L Creatine Kinase MB 1.1 ng/ml Creatine Kinase MB Ratio 3.1 Troponin I < 0.015 ng/ml Test 04/23/17 03:21 04/23/17 11:15 White Blood Count 9.51 K/uL Red Blood Count 2.95 M/uL Hemoglobin 8.6 g/dL 8.6 g/dL Hematocrit 26.5 % 28.0 % Mean Corpuscular Volume 89.8 fL Mean Corpuscular Hemoglobin 29.2 pg Mean Corpuscular Hemoglobin Concent 32.5 g/dl Platelet Count 180 K/uL Mean Platelet Volume 9.9 fL Neutrophils (%) (Auto) 62.2 % Lymphocytes (%) (Auto) 21.0 % Monocytes (%) (Auto) 13.9 % Eosinophils (%) (Auto) 2.0 % Basophils (%) (Auto) 0.1 % Neutrophils # (Auto) 5.91 K/uL Lymphocytes # (Auto) 2.00 K/uL Monocytes # (Auto) 1.32 K/uL Eosinophils # (Auto) 0.19 K/uL Basophils # (Auto) 0.01 K/uL RDW Standard Deviation 49.2 fL RDW Coefficient of Variation 15.2 % Immature Granulocyte % (Auto) 0.8 % Immature Granulocyte # (Auto) 0.08 K/uL Red Blood Cell Morphology Unremarkable Prothrombin Time 11.2 SECONDS Prothromb Time International Ratio 1.0 Activated Partial Thromboplast Time 28.4 SECONDS Partial Thromboplastin Ratio 1.1 Sodium Level 148 mmol/L Potassium Level 3.9 mmol/L Chloride Level 116 mmol/L Carbon Dioxide Level 26 mmol/L Anion Gap 6.0 mmol/L Blood Urea Nitrogen 43 mg/dl Creatinine 0.85 mg/dl Est Creatinine Clear Calc Drug Dose 51.7 ml/min Estimated GFR () 71.4 Estimated GFR (Non- 61.6 BUN/Creatinine Ratio 50.4 Random Glucose 102 mg/dl Calcium Level 7.7 mg/dl Magnesium Level 2.3 mg/dl Total Creatine Kinase 25 U/L Creatine Kinase MB 1.0 ng/ml Creatine Kinase MB Ratio 4.0 Troponin I < 0.015 ng/ml Assessment and Plan Patient underwent upper endoscopy today and was found to have an 15 mm cratered ulcer in the superior aspect of the duodenal bulb. The base was clean and there was no attached clot or active bleeding. Patient is currently receiving IV Protonix which will be continued I would avoid aspirin and Plavix for at least another week probably wait a week to begin Eliquis. She can begin a bland liquid diet.
--- NOTE | 2017-04-23 12:59 | GI REPORT ---
Procedure Date: 04/23/2017 12:21 PM Procedure: Upper GI endoscopy Indications: Melena Medicines: Propofol total dose 110 mg IV, Lidocaine 60 mg IV Complications: No immediate complications. Estimated Blood Loss: Estimated blood loss: none. Procedure: Pre-Anesthesia Assessment: - Prior to the procedure, a History and Physical was performed, and patient medications, allergies and sensitivities were reviewed. The patient's tolerance of previous anesthesia was reviewed. - The risks and benefits of the procedure and the sedation options and risks were discussed with the patient. All questions were answered and informed consent was obtained. After obtaining informed consent, the endoscope was passed under direct vision. Throughout the procedure, the patient's blood pressure, pulse, and oxygen saturations were monitored continuously. The Scope was introduced through the mouth, and advanced to the second part of duodenum. The upper GI endoscopy was accomplished without difficulty. The patient tolerated the procedure well. Findings: The examined esophagus was normal. Diffuse atrophic mucosa was found in the gastric fundus. One non-bleeding cratered duodenal ulcer with no stigmata of bleeding was found in the duodenal bulb. The lesion was 15 mm in largest dimension. Impression: - Normal esophagus. - Gastric mucosal atrophy. - One non-bleeding duodenal ulcer with no stigmata of bleeding. - No specimens collected. Recommendation: - Return patient to [facility] for ongoing care. Charanjit Holloway M.D. Charanjit Holloway MD 04/23/2017 12:59:35 PM This report has been signed electronically. Note Initiated On: 04/23/2017 12:21 PM I attest to the content of the Intraoperative Record and orders documented therein, exceptions below
--- NOTE | 2017-04-23 13:17 | Anesthesiology Progress Note ---
Anesthesia Post Op Note Date & Time Apr 23, 2017 at 13:17 Vital Signs Pain Intensity: 0.0 Vital Signs Past 12 Hours Date Time Temp Pulse Resp B/P (MAP) Pulse Ox O2 Delivery O2 Flow Rate FiO2 04/23/17 13:15 84 18 145/86 (105) 97 Room Air 04/23/17 12:53 86 16 128/86 (100) 95 Room Air 04/23/17 12:10 36.7 84 18 141/59 (86) 97 Room Air 04/23/17 11:28 36.8 89 18 150/67 (94) 97 Room Air 04/23/17 08:58 36.8 77 18 105/37 Nasal Cannula 2.0 04/23/17 08:00 98 Room Air 2.0 04/23/17 07:30 36.8 77 18 105/37 (59) 98 2.0 04/23/17 04:13 36.6 64 16 154/49 (84) 97 Room Air 04/23/17 04:06 99 Nasal Cannula 2.0 Notes Mental Status: alert / awake / arousable, participated in evaluation Pt Amnestic to Procedure: Yes Nausea / Vomiting: adequately controlled Pain: adequately controlled Airway Patency, RR, SpO2: stable & adequate BP & HR: stable & adequate Hydration State: stable & adequate Anesthetic Complications: no major complications apparent
[2017-04-23] MEDS: MoRPHine SULFATE 2 MG/ML CARP IV PRN ×2 (14:10→19:25)
[2017-04-23 17:38] LABS: HEMATOCRIT 26.7 % (37-47)
[2017-04-23] MEDS: PANTOprazole SOD 40 MG TAB PO SCH (19:25)
[2017-04-23] MEDS: MoRPHine SULFATE 4 MG/ML 1 ML CARP\\VIAL IV PRN (21:39)
[2017-04-23 23:13] LABS: HEMATOCRIT 26.7 % (37-47)
[2017-04-24] VITALS: BP 145/65; PULSE 88; TEMP 36.9; O2SAT 96
[2017-04-24 00:15] VITALS: O2SAT 96
[2017-04-24] MEDS: MoRPHine SULFATE 4 MG/ML 1 ML CARP\\VIAL IV PRN (03:57)
[2017-04-24] MEDS: NSS + 20MEQ KCL 1000ML 1,000 ML IV SCH (03:57)
[2017-04-24 04:00] VITALS: BP 160/68; PULSE 93; TEMP 36.5; O2SAT 98
[2017-04-24 05:50] LABS: BASO % 0.2 %; BASO ABS # 0.02 K/uL (0-0.2); EOS % 2.3 %; HEMATOCRIT 26.3 % (37-47); IG% 0.7 %; LYMPH % 19.9 %; LYMPH ABS # 1.79 K/uL (1.2-3.4); MEAN CORPUSCULAR HGB CONC 31.6 g/dl (32-36); MEAN PLATELET VOLUME 10.1 fL (7.4-10.4); MONO % 13.2 %; NEUT % 63.7 %; PLATELET COUNT 185 K/uL (130-400); RED BLOOD COUNT 2.86 M/uL (4.2-5.4); WHITE BLOOD COUNT 9.01 K/uL (4.8-10.8)
[2017-04-24 06:11] LABS: INR 1.1 (0.9-1.1); PARTIAL THROMBOPLASTIN RATIO 1.2; PROTHROMBIN TIME (PATIENT) 11.3 SECONDS (9.0-12.0)
[2017-04-24 06:17] LABS: COMPLETE YES; OVALOCYTES 1+
[2017-04-24 06:25] LABS: BUN/CREATININE RATIO 23.3 (10-20); CALCIUM 8.2 mg/dl (8.5-10.1); CREATININE 0.61 mg/dl (0.60-1.20); MAGNESIUM 1.9 mg/dl (1.8-2.4); POTASSIUM 4.1 mmol/L (3.5-5.1)
[2017-04-24 08:00] VITALS: BP 119/58; PULSE 106; TEMP 36.9; O2SAT 96
[2017-04-24] MEDS: PANTOprazole SOD 40 MG TAB PO SCH (08:02)
--- NOTE | 2017-04-24 08:23 | Hospitalist Progress Note ---
Hospitalist Progress Note Date of Service Apr 24, 2017. Objective Vital Signs Date Time Temp Pulse Resp B/P (MAP) Pulse Ox O2 Delivery O2 Flow Rate FiO2 04/24/17 08:00 36.9 106 18 119/58 (78) 96 04/24/17 04:00 36.5 93 18 160/68 (98) 98 Room Air 04/24/17 04:00 98 Room Air 04/24/17 00:15 96 Room Air 04/24/17 00:00 36.9 88 20 145/65 (91) 96 Room Air 04/23/17 20:00 95 Room Air 04/23/17 19:26 36.8 100 18 150/58 (88) 95 Nasal Cannula 2.0 04/23/17 16:08 36.4 95 18 107/80 (89) 96 Room Air 04/23/17 16:00 Room Air 2.0 04/23/17 14:00 Room Air 04/23/17 13:25 86 18 147/58 (87) 99 Room Air 04/23/17 13:15 84 18 145/86 (105) 97 Room Air 04/23/17 12:53 86 16 128/86 (100) 95 Room Air 04/23/17 12:10 36.7 84 18 141/59 (86) 97 Room Air 04/23/17 11:28 36.8 89 18 150/67 (94) 97 Room Air 04/23/17 08:58 36.8 77 18 105/37 Nasal Cannula 2.0 Laboratory Results Last 24 Hours Test 04/23/17 11:15 04/23/17 17:19 04/23/17 23:10 04/24/17 05:07 Hemoglobin 8.6 g/dL 8.2 g/dL 8.5 g/dL 8.3 g/dL Hematocrit 28.0 % 26.7 % 26.7 % 26.3 % White Blood Count 9.01 K/uL Red Blood Count 2.86 M/uL Mean Corpuscular Volume 92.0 fL Mean Corpuscular Hemoglobin 29.0 pg Mean Corpuscular Hemoglobin Concent 31.6 g/dl Platelet Count 185 K/uL Mean Platelet Volume 10.1 fL Neutrophils (%) (Auto) 63.7 % Lymphocytes (%) (Auto) 19.9 % Monocytes (%) (Auto) 13.2 % Eosinophils (%) (Auto) 2.3 % Basophils (%) (Auto) 0.2 % Neutrophils # (Auto) 5.74 K/uL Lymphocytes # (Auto) 1.79 K/uL Monocytes # (Auto) 1.19 K/uL Eosinophils # (Auto) 0.21 K/uL Basophils # (Auto) 0.02 K/uL RDW Standard Deviation 51.1 fL RDW Coefficient of Variation 15.5 % Immature Granulocyte % (Auto) 0.7 % Immature Granulocyte # (Auto) 0.06 K/uL Ovalocytes 1+ Prothrombin Time 11.3 SECONDS Prothromb Time International Ratio 1.1 Activated Partial Thromboplast Time 32.3 SECONDS Partial Thromboplastin Ratio 1.2 Sodium Level 145 mmol/L Potassium Level 4.1 mmol/L Chloride Level 114 mmol/L Carbon Dioxide Level 25 mmol/L Anion Gap 6.0 mmol/L Blood Urea Nitrogen 14 mg/dl Creatinine 0.61 mg/dl Est Creatinine Clear Calc Drug Dose 71.6 ml/min Estimated GFR () 94.5 Estimated GFR (Non- 81.5 BUN/Creatinine Ratio 23.3 Random Glucose 97 mg/dl Calcium Level 8.2 mg/dl Magnesium Level 1.9 mg/dl Assessment and Plan This is an 87 F with PMHx of afib and CAD s/p stenting on eliquis and plavix admitted with GI bleed Upper GI bleed with duodenal ulcer - Trend H&H with am labs - S/p 1 unit of platelets, and 2 U PRBCs on 04/22 - Pt had recent cardiac stent 2 months ago, her hemoglobin target is 10. - EGD 04/[address] Holloway, found 1 nonbleeding dulcer with no stigmata louann bleeding found in the duodenal bulb. - Cont protonix 40 mg PO BID CAD/hypertension/coronary artery stents- - NPO d/t bleed - Restart plavix and metoprolol succinate today. - Hold Eliquis, aspirin, lisinopril. - Her best treatment at this point is to target a hemoglobin to be at least 10. - may consider transfusing another 1 U PRBCs today. - Pt reports taking full dose aspirin once or twice every 2 weeks for headache. Hyperlipidemia -hold atorvastatin 40 mg QAM Cerebrovascular disease -for now antiplatelet agents need to be on hold. DVT ppx: Teds, SCDs, no chemical anticoagulation CODE STATUS: Full CODE Disposition: From home, discharge likely within 1-2 days
[2017-04-24] MEDS ORDERED: METOPROLOL SUCC 25MG EXT REL TAB PO SCH (09:00)
--- NOTE | 2017-04-24 09:51 | Gastroenterology Progress Note ---
Progress Note Date of Service: Apr 24, 2017 Subjective Pt evaluation today including: conversation w/ patient, physical exam, chart review, lab review, review of studies, review of inpatient medication list CC f/U GI bleeding HPI No stools reported Pt denies abd pain. Review of Systems Respiratory: No shortness of breath Cardiac: No chest pain Medications Current Inpatient Medications Medications (Trade) Dose Ordered Sig/Ron Route Start Time Stop Time Status Last Admin Dose Admin Potassium Chloride/Sodium Chloride 1,000 ml @ 100 mls/hr Q10H IV 04/22/17 12:30 05/22/17 12:29 04/24/17 03:57 100 MLS/HR Ondansetron HCl (Zofran Inj) 4 mg Q6H PRN IV 04/22/17 11:30 05/22/17 11:29 04/22/17 13:36 4 MG Albuterol (Ventolin Hfa Inhaler) 2 puffs QID PRN INH 04/22/17 11:30 05/22/17 11:29 Morphine Sulfate (MoRPHine SULFATE INJ) 2 mg Q2H PRN IV 04/22/17 12:00 05/06/17 11:59 04/23/17 19:25 2 MG Morphine Sulfate (MoRPHine SULFATE INJ) 4 mg Q2H PRN IV 04/22/17 12:15 05/06/17 12:14 04/24/17 03:57 4 MG Ipratropium [place] (Atrovent 0.02% 0.5MG/2.5ML Neb) 0.5 mg Q2H PRN INH 04/22/17 12:15 05/22/17 12:14 Levalbuterol (Xopenex 1.25MG/ 0.5ML Neb) 1.25 mg Q2H PRN INH 04/22/17 12:15 05/22/17 12:14 Heparin Sodium (Porcine) (Heparin 10 Unit/ ml 5 ml Flush) 5 ml PRN PRN FLUSH 04/23/17 00:45 05/23/17 00:44 Pantoprazole Sodium (Protonix Tab) 40 mg BID PO 04/23/17 21:00 05/23/17 20:59 04/24/17 08:02 40 MG Metoprolol Succinate (Toprol Xl Tab) 25 mg QAM PO 04/24/17 09:00 05/24/17 08:59 04/24/17 09:29 25 MG Objective Vital Signs Date Time Temp Pulse Resp B/P (MAP) Pulse Ox O2 Delivery O2 Flow Rate FiO2 04/24/17 08:00 36.9 106 18 119/58 (78) 96 04/24/17 04:00 36.5 93 18 160/68 (98) 98 Room Air 04/24/17 04:00 98 Room Air 04/24/17 00:15 96 Room Air 04/24/17 00:00 36.9 88 20 145/65 (91) 96 Room Air 04/23/17 20:00 95 Room Air 04/23/17 19:26 36.8 100 18 150/58 (88) 95 Nasal Cannula 2.0 04/23/17 16:08 36.4 95 18 107/80 (89) 96 Room Air 04/23/17 16:00 Room Air 2.0 04/23/17 14:00 Room Air 04/23/17 13:25 86 18 147/58 (87) 99 Room Air 04/23/17 13:15 84 18 145/86 (105) 97 Room Air 04/23/17 12:53 86 16 128/86 (100) 95 Room Air 04/23/17 12:10 36.7 84 18 141/59 (86) 97 Room Air 04/23/17 11:28 36.8 89 18 150/67 (94) 97 Room Air Physical Exam General Appearance: WD/WN, no apparent distress Respiratory/Chest: normal breath sounds, no respiratory distress Cardiovascular: no murmur Abdomen: normal bowel sounds, non tender, soft, no organomegaly Laboratory Results Last 24 Hours Test 04/23/17 11:15 04/23/17 17:19 04/23/17 23:10 04/24/17 05:07 Hemoglobin 8.6 g/dL 8.2 g/dL 8.5 g/dL 8.3 g/dL Hematocrit 28.0 % 26.7 % 26.7 % 26.3 % White Blood Count 9.01 K/uL Red Blood Count 2.86 M/uL Mean Corpuscular Volume 92.0 fL Mean Corpuscular Hemoglobin 29.0 pg Mean Corpuscular Hemoglobin Concent 31.6 g/dl Platelet Count 185 K/uL Mean Platelet Volume 10.1 fL Neutrophils (%) (Auto) 63.7 % Lymphocytes (%) (Auto) 19.9 % Monocytes (%) (Auto) 13.2 % Eosinophils (%) (Auto) 2.3 % Basophils (%) (Auto) 0.2 % Neutrophils # (Auto) 5.74 K/uL Lymphocytes # (Auto) 1.79 K/uL Monocytes # (Auto) 1.19 K/uL Eosinophils # (Auto) 0.21 K/uL Basophils # (Auto) 0.02 K/uL RDW Standard Deviation 51.1 fL RDW Coefficient of Variation 15.5 % Immature Granulocyte % (Auto) 0.7 % Immature Granulocyte # (Auto) 0.06 K/uL Ovalocytes 1+ Prothrombin Time 11.3 SECONDS Prothromb Time International Ratio 1.1 Activated Partial Thromboplast Time 32.3 SECONDS Partial Thromboplastin Ratio 1.2 Sodium Level 145 mmol/L Potassium Level 4.1 mmol/L Chloride Level 114 mmol/L Carbon Dioxide Level 25 mmol/L Anion Gap 6.0 mmol/L Blood Urea Nitrogen 14 mg/dl Creatinine 0.61 mg/dl Est Creatinine Clear Calc Drug Dose 71.6 ml/min Estimated GFR () 94.5 Estimated GFR (Non- 81.5 BUN/Creatinine Ratio 23.3 Random Glucose 97 mg/dl Calcium Level 8.2 mg/dl Magnesium Level 1.9 mg/dl Assessment and Plan Duodenal ulcer--stool for H.pylori pending, Continue protonix 40 mg bid for 8 weeks then continue on 40 mg a day indefinitely. ASA likely cause of this, I discusseed with Dr Laboy and he states foam caster who placed stent 2 months ago feels critical to be on ASA and Plavix to prevent stent closure. Since ASA and Plavix deemed critical then go ahead an use even thought have bleeding risk. If can hold Eliquis minimum of one week that would be helpful but can take 6-8 weeks to heal ulcer. melena--resolved at present acute blood loss anemia--stable. Advance to solid diet.
[2017-04-24 11:32] VITALS: BP 142/70; PULSE 105; TEMP 36.6; O2SAT 98
[2017-04-24] MEDS ORDERED: ASPEC81 PO (11:38)
--- NOTE | 2017-04-24 11:43 | Discharge Instructions ---
Discharge Instructions Date of Service Apr 24, 2017. Admission Reason for Admission: Blood Loss Anemia, Upper Gi Bleed Discharge Discharge Diagnosis / Problem: Duodenal ulcer, gastrointestinal bleed Discharge Goals Goal(s): Decrease discomfort, Improve function, Increase independence, Improve disease control Activity Recommendations Activity Limitations: resume your previous activity Lifting Limitations: no more than 25 pounds, gradually increase as tolerated Exercise/Sports Limitations: rest today, gradually increase as tolerated May Resume Sexual Activity: when tolerated Shower/Bathe: no limitations Driving or Machine Use: DO NOT DRIVE while taking narcotic pain medications AND until seen by your PCP . Instructions / Follow-Up Instructions / Follow-Up You were admitted to [facility] with gastrointestinal bleed and diagnosed with duodenal ulcer. - During your stay here you were treated with intravenous anti-acid blockers, fluids, and received 2 U of red blood cells and 1 U of platelets. - Imaging studies which were completed include EGD on 04/23, and were abnormal showing the duodenal ulcer. You should have a recheck of your blood work within 1 week, prior to your PCP appointment. Medication changes: STOP taking eliquis! Continue taking plavix 75 mg daily START taking aspirin 81 mg daily along with plavix. Follow up: Follow up with Dr. Paul, cardiology, within 1-2 weeks to discuss medications. Follow up with GI with Dr. Holloway within 2-4 weeks. Follow up with PCP within 1 week. Current Hospital Diet Patient's current hospital diet: AHA Diet (Heart Healthy) Discharge Diet Recommended Diet: AHA Diet (Heart Healthy) Procedures Procedures Performed: EGD 04/23/17 Pending Studies Studies pending at discharge: no Medical Emergencies . Who to Call and When: Medical Emergencies: If at any time you feel your situation is an emergency, please call 911 immediately. . Non-Emergent Contact Non-Emergency issues call your: Primary Care Provider Call Non-Emergent contact if: you have a fever, temperature is above 100.5, your pain is not controlled, your pain is worsening, you have any medication questions You develope lightheadedness, dizziness, chest pain, shortness of breath, abdominal pain, nausea, vomiting, dark tarry stools, or if you have other concerns regarding your health. . Past History Medical & Surgical History: (1) Duodenal ulcer (2) Upper GI bleed (3) Blood loss anemia (4) CVA (cerebral vascular accident) (5) TIA (transient ischemic attack) (6) Atrial fibrillation with RVR . "Provider Documentation" section prepared by Jaqueline Castillo. . VTE Core Measure Inpt VTE Proph given/why not?: T.E.D. Stockings, SCD's (Eliquis is being stopped due to acute bleed)
[2017-04-24] MEDS ORDERED: PRT40 PO (12:39)
[2017-04-24 12:44] VITALS: BP 142/70; PULSE 105; TEMP 36.6; O2SAT 98
[2017-04-24] MEDS: MoRPHine SULFATE 2 MG/ML CARP IV PRN (12:54)
[2017-04-24] MEDS ORDERED: ASPIRIN 81 MG ECTAB PO SCH (13:30)
[2017-04-24] MEDS ORDERED: CLOPIDOGREL BISULFATE 75 MG TAB PO SCH (13:30)
--- NOTE | 2017-04-24 14:06 | Discharge Summary ---
Discharge Summary Date of Service Apr 24, 2017. (Melyssa Castillo PA-C) Discharge Summary Admission Date: Apr 22, 2017 at 11:20 Discharge Date: Apr 24, 2017 Discharge Disposition: Home Principal Diagnosis: Duodenal ulcer, gastrointestinal bleed Immunizations: Have You Had Influenza Vaccine: Yes Influenza Vaccine Date: Oct 27, 2012 History of Tetanus Vaccine?: No History of Pneumococcal: Yes unsure of year History of Hepatitis B Vaccine: No Procedures: EGD 04/23/[address] Holloway Findings: The esophagus was normal. Diffuse atrophic mucosa was found in the gastric fundus. One non-bleeding cratered duodenal ulcer with no stigmata of bleeding was found in the duodenal bulb. The leasion was 15 mm in largest dimension. Impression: Normal esophagus Gastric mucosal atrophy. One non-bleeding duodenal ulcer with no stigmata of bleeding. No specimes collected. SINGLE VIEW CHEST 04/22/17 CLINICAL HISTORY: Generalized abdominal pain. FINDINGS: An AP, portable, upright chest radiograph is compared to chest x-ray and chest CT dated 03/10/2016. The examination is degraded by portable technique and patient rotation. The heart is enlarged and there is atherosclerotic calcification of the thoracic aorta. The pulmonary vasculature is noncongested. The mitral annulus is densely calcified. Chronic interstitial thickening is similar to previous. There is minimal left basilar atelectasis. The lungs and pleural spaces are otherwise clear. No pneumothorax is seen. The skeletal structures are osteopenic. The bony thorax is grossly intact. Surgical clips are noted in the right axilla. IMPRESSION: Cardiomegaly with no acute cardiopulmonary abnormality. Electronically signed by: Vinnie Thacker M.D. 04/22/2017 10:23 AM Dictated Date/Time: 04/22/2017 10:22 AM The status of this report is Signed. (Melyssa Castillo PA-C) Medication Reconciliation New Medications: Aspirin (Aspirin EC Low Dose) 81 Mg Ectab 81 MG PO DAILY for 30 Days, #30 TAB Pantoprazole (Pantoprazole Sodium) 40 Mg Tab 40 MG PO BID for 30 Days, #60 TAB Continued Medications: Albuterol (Ventolin) Inh 2 PUFFS INH QID PRN for SOB/Wheezing for 5 Days, INHALER Atorvastatin (Atorvastatin Calcium) 40 Mg Tab 40 MG PO QAM for 30 Days, #30 TAB 6 Refills Calcium/Vitamin D (Os-Josiah 500 Plus D) Tab 1 TAB PO BID, TAB Cholecalciferol (Vitamin D3) 1,000 Unit Tab 2 TAB PO QAM for 90 Days, #180 TAB 3 Refills Clopidogrel Bisulfate (Clopidogrel) 75 Mg Tab 75 MG PO QAM for 30 Days, #30 TAB 11 Refills Furosemide (Lasix) 20 Mg Tab 20 MG PO DAILY PRN for swelling, fluid retention, TAB Gabapentin (Neurontin) 100 Mg Cap 200 MG PO HS, CAP Hydrocodone/Acetaminophen (Bergen 10/325 Tab) 1 Tab Tab 1 TAB PO TID PRN for Pain, TAB Lisinopril (Zestril) 10 Mg Tab 10 MG PO QAM, TAB Lorazepam (Ativan) 0.5 Mg Tab 0.5 MG PO DAILY PRN for Anxiety, TAB Meclizine Hcl (Meclizine Hcl) 25 Mg Tab 25 MG PO TID PRN for vertigo Metoprolol Succinate (Metoprolol Succinate ER) 25 Mg Tabcr 25 MG PO QAM, #30 Multivitamin (Multivitamin) Tab 1 TAB PO DAILY, TAB Nitroglycerin (Nitrostat) 0.4 Mg/1 Tab Subl 0.4 MG SL UD PRN for Chest Pain for 30 Days, #30 TAB Discontinued Medications: Apixaban (Eliquis) 2.5 Mg Tab 5 MG PO BID for 30 Days, #60 TAB 3 Refills Discharge Exam The patient was seen and examined this morning. Pt reports feeling very well. She ate breakfast this morning and tolerated it without difficulty. She is passing gas, no bm yet but feels like she needs to have one. She denies any lightheadedness, dizziness, chest pain, sob. She denies feeling any palpitations or flutter. Review of Systems: Constitutional: No fever, No chills, No sweats, No fatigue Eyes: No redness, No diplopia ENT: No sore throat, No trouble swallowing Respiratory: No shortness of breath, No dyspnea on exertion Cardiovascular: No chest pain, No palpitations Abdomen: No pain, No nausea, No vomiting, No diarrhea, No constipation Genitourinary - Female: No dysuria Neurologic: No numbness/tingling, No balance problems Psychiatric: No depression symptoms Endocrine: No fatigue Integumentary: No rash, No itch Physical Exam: General Appearance: WD/WN, no apparent distress Eyes: PERRL, EOMI ENT: hearing grossly normal, pharynx normal Neck: supple, no JVD Respiratory/Chest: lungs clear, no respiratory distress, no accessory muscle use Cardiovascular: regular rate, rhythm, no murmur, normal peripheral pulses Abdomen / GI: normal bowel sounds, non tender, soft, no organomegaly Extremities: normal inspection, no calf tenderness, no pedal edema Neurologic/Psychiatric: alert, normal mood/affect, oriented x 3 Skin: normal color, warm/dry (Melyssa Castillo PA-C) Hospital Course H&P per Venu Majano MD. History of Present Illness Source: patient, family The patient is an 87-year-old female who presents to the emergency department with dizziness and progressive fatigue over the past 2 weeks. She's had difficulty walking due to imbalance and has fallen recently. She reports black stools started 3 days ago and her blood pressure began to be low at that time as well. She has a history of vertigo, which is what she initially thought this was, but the symptoms are much worse. She presently is taking Plavix and Eliquis for history of A. fib and coronary disease. She has a history of bleeding in her stomach approximately 4-5 years ago that required blood transfusions. She had a cardiac stent placed 2 months ago. She denies chest pain or shortness of breath at this time. Physical Exam Vital Signs Date Time Temp Pulse Resp B/P (MAP) Pulse Ox O2 Delivery O2 Flow Rate FiO2 04/22/17 10:57 36.7 83 22 95/52 98 2.0 04/22/17 10:46 110/70 04/22/17 10:36 81 117/59 97 04/22/17 10:35 37.1 80 20 117/59 97 2.0 04/22/17 10:31 111/43 04/22/17 10:21 82 96 04/22/17 10:16 106/54 04/22/17 10:06 77 23 94 04/22/17 10:01 117/43 04/22/17 09:51 79 19 93 04/22/17 09:46 94/46 04/22/17 09:40 84 21 95 04/22/17 09:39 97/55 04/22/17 09:29 97 04/22/17 09:21 36.3 132 24 68/67 88 Room Air The patient is awake, alert and oriented 3, looks very pale and fatigued, normocephalic and atraumatic, lying in bed and in no acute distress. HEENT--PERRL, EOMI, mucous membranes and oropharynx dry. Neck--supple, no JVD or bruits, thyroid normal, trachea midline, no adenopathy. Heart--irregularly irregular with PVCs, no murmurs, rubs or gallops. Lungs--clear bilaterally with good air movement, no respiratory distress, no accessory muscle use. Abdomen--normal bowel sounds and soft, nontender and nondistended, no hernias or masses, no organomegaly. Extremities--no cyanosis, clubbing or edema. There are good distal pulses b/l. Dermatologic--normal skin turgor, very pale, warm and dry, no abnormal lymph nodes, no rash. Neurologic--cranial nerves II through XII grossly intact. Rheumatologic--normal range of motion, nontender, muscles and joints. Psychiatric--normal affect. Hospital Course: This is an 87 F with PMHx of afib and CAD s/p stenting on eliquis and plavix admitted with GI bleed. She was treated with a protonix gtt, intravenous fluids. Her hgb was found to be 6.9 and was transfused 2 U PRBCs and 1 U of platelets on 04/22. Eliquis, plavix and aspirin were stopped. Pt underwent EGD by Dr. Holloway and was found to have 1 nonbleeding duodenal ulcer. Pt was placed on high dose protonix and was tolerating a regular diet. Plavix and low dose aspirin 81 mg was restarted, eliquis was continued to be held at time of dc. Her hgb at time of discharge was stable at 8.3. Pt was instructed to have CBC rechecked in 3 days on 04/28, and to follow up with PCP within 1 week. She should follow up with Dr. Paul, cardiology, as an outpatient to determine anticoagulation therapies after ulcer has time to heal. Upper GI bleed with duodenal ulcer - S/p 1 unit of platelets, and 2 U PRBCs on 04/22 - Pt had recent cardiac stent 2 months ago, her hemoglobin target is 10, stabilized, recheck CBC on 04/28/17. Hgb at time of dc was 8.3. - EGD 04/[address] Holloway, found 1 nonbleeding dulcer with no stigmata louann bleeding found in the duodenal bulb. - Cont protonix 40 mg PO BID CAD/hypertension/coronary artery stents- - NPO d/t bleed - Restart plavix, asa 81 mg, and metoprolol succinate today. Restart lisinopril tomorrow. - Hold Eliquis until discussed with cardiology, Dr. Paul. - Her best treatment at this point is to target a hemoglobin to be at least 10- pt is asymptomatic. Hyperlipidemia -hold atorvastatin 40 mg QAM while admitted, resume upon discharge. Cerebrovascular disease -Restat plavix and asa 81 mg. Hold eliquis. DVT ppx: Teds, SCDs CODE STATUS: Full CODE Disposition: From home, discharge to home today. Total Time Spent: Greater than 30 minutes This includes examination of the patient, discharge planning, medication reconciliation, and communication with other providers. (Melyssa Castillo, NAKUL) PA Physician Supervision Note: I interviewed and examined the patient. Discussed with Jaqueline Castillo PAC and agree with findings and plan as documented in the note. Any exceptions or clarifications are listed here: None Pt with acute blood loss anemia from being on aspirin, plavix and eliquis due to recent cardiac stent and afib, found to have clean based duodenal ulcer. HGB stable post procedure will hold eliquis but keep asa and plavix to promote stent healing, once ulcer heals( next 2-4 weeks) Cardiology may re begin Eliquis, but if on antiplatelet agents should consider concurrent protonix. vitals stable except for a short run of tachycardia lungs clear abdomen is soft will discharge today with amendments to aspirin and holding eilquis temporarily Documented By: Larry Laboy (Larry Laboy M.D.) Discharge Instructions Please refer to the electronic Patient Visit Report (Discharge Instructions) for additional information. (Melyssa Castillo, NAKUL) Follow-Up Follow up with your Primary Care Provider within 1 week. Follow up with cardiology, Dr. Paul within 1-2 weeks. Follow up with GI in 2-4 weeks. (Melyssa Castillo, NAKUL) Additional Copies To Andry Griffin M.D.
== END 2017-04-24 13:29 | disposition home health service (06) | DRG 813 ==
LOC: C.EDB 09:12 → C.2E 11:20 → ENRESERV 11:24
PROVIDERS: ADMIT Hospitalist; ATTEND Internal Medicine
PROC: 02HV33Z Insertion of Infusion Device into Superior Vena Cava, Percutaneous Approach (ICD-10-PCS; 2017-04-22)
PROC: 0DJ08ZZ Inspection of Upper Intestinal Tract, Via Natural or Artificial Opening Endoscopic (ICD-10-PCS; principal; 2017-04-23 12:15)
DX: D68.32 Hemorrhagic disorder due to extrinsic circulating anticoagulants (principal); K92.1 Melena; D62 Acute posthemorrhagic anemia; K26.7 Chronic duodenal ulcer without hemorrhage or perforation; T45.515A Adverse effect of anticoagulants, initial encounter; T45.525A Adverse effect of antithrombotic drugs, initial encounter; I10 Essential (primary) hypertension; T39.015A Adverse effect of aspirin, initial encounter; I48.91 Unspecified atrial fibrillation; I25.10 Atherosclerotic heart disease of native coronary artery without angina pectoris; E78.5 Hyperlipidemia, unspecified; Z98.1 Arthrodesis status; I67.9 Cerebrovascular disease, unspecified; Z79.01 Long term (current) use of anticoagulants; Z86.73 Personal history of transient ischemic attack (TIA), and cerebral infarction without residual deficits; Z95.5 Presence of coronary angioplasty implant and graft; Y92.009 Unspecified place in unspecified non-institutional (private) residence as the place of occurrence of the external cause; Z85.3 Personal history of malignant neoplasm of breast

== ENCOUNTER → 2017-04-27 | Outpatient (CLI) | payer OTHER ==
[~2017-04-27] MED LIST changes: +ASPEC81 PO; -ASPI81TA28 PO; -ELQ25 PO; -HYDR-3763 PO; +HYDR-4383 PO; -LEVO-14 PO; -PRLSR20 PO; +PRT40 PO
[2017-04-27 11:24] LABS: BASO % 0.3 %; BASO ABS # 0.02 K/uL (0-0.2); EOS % 2.1 %; HEMATOCRIT 27.1 % (37-47); IG% 0.6 %; LYMPH % 16.4 %; LYMPH ABS # 1.16 K/uL (1.2-3.4); MEAN CELL VOLUME 91.6 fL (80-100); MEAN CORPUSCULAR HEMOGLOBIN 29.4 pg (25-34); MEAN CORPUSCULAR HGB CONC 32.1 g/dl (32-36); MEAN PLATELET VOLUME 10.1 fL (7.4-10.4); NEUT % 69.6 %; PLATELET COUNT 236 K/uL (130-400); RED BLOOD COUNT 2.96 M/uL (4.2-5.4); WHITE BLOOD COUNT 7.06 K/uL (4.8-10.8)
[2017-04-27 11:59] LABS: COMPLETE YES; OVALOCYTES 1+
--- NOTE | 2017-05-02 07:33 | CODING QUERY NO DIAGNOSIS ---
Valid Physician Order Needed A valid physician order must be submitted in order to properly bill for the service(s) provided, including date of service(s), valid diagnosis, and physician signature. If these tests are done on a recurring basis the original physician order must be submitted in order to code and bill for the service(s) provided. Please fax us the original, signed physician order so that we may expedite billing to [phone] DOS 04/27 * CBC Thank you Mag[facility]
== END | disposition home or self-care (01) ==
LOC: C.LABSPEC 11:11
PROVIDERS: ATTEND Internal Medicine Geriatric Medicine
DX: K26.9 Duodenal ulcer, unspecified as acute or chronic, without hemorrhage or perforation (principal); D62 Acute posthemorrhagic anemia; R53.1 Weakness; I10 Essential (primary) hypertension; I48.91 Unspecified atrial fibrillation

== ENCOUNTER → 2017-05-04 | Outpatient (CLI) | payer OTHER ==
[2017-05-04 11:46] LABS: BASO % 0.4 %; BASO ABS # 0.03 K/uL (0-0.2); COMPLETE YES; HEMATOCRIT 29.4 % (37-47); IG% 0.7 %; LYMPH ABS # 1.77 K/uL (1.2-3.4); MEAN CELL VOLUME 92.2 fL (80-100); MEAN CORPUSCULAR HEMOGLOBIN 28.8 pg (25-34); MEAN CORPUSCULAR HGB CONC 31.3 g/dl (32-36); MEAN PLATELET VOLUME 9.5 fL (7.4-10.4); MONO % 10.9 %; PLATELET COUNT 391 K/uL (130-400); RED BLOOD COUNT 3.19 M/uL (4.2-5.4); WHITE BLOOD COUNT 7.68 K/uL (4.8-10.8)
--- NOTE | 2017-05-06 08:45 | CODING QUERY NO DIAGNOSIS ---
Valid Physician Order Needed A valid physician order must be submitted in order to properly bill for the service(s) provided, including date of service(s), valid diagnosis, and physician signature. If these tests are done on a recurring basis the original physician order must be submitted in order to code and bill for the service(s) provided. Please fax us the original, signed physician order so that we may expedite billing to [phone] DOS 05/04 * CBC Thank you Magui [facility]
== END | disposition home or self-care (01) ==
LOC: C.LABSPEC 11:06
PROVIDERS: ATTEND Internal Medicine Geriatric Medicine
DX: K26.9 Duodenal ulcer, unspecified as acute or chronic, without hemorrhage or perforation (principal); D62 Acute posthemorrhagic anemia; R53.1 Weakness; I10 Essential (primary) hypertension; I48.91 Unspecified atrial fibrillation

== ENCOUNTER → 2017-05-09 | Outpatient (CLI) | payer OTHER ==
[2017-05-09 10:06] LABS: BLOOD UREA NITROGEN 28 mg/dl (7-18); BUN/CREATININE RATIO 25.3 (10-20); CALCIUM 8.7 mg/dl (8.5-10.1); CARBON DIOXIDE 24 mmol/L (21-32); CHLORIDE 109 mmol/L (98-107); GLUCOSE 133 mg/dl (70-99); POTASSIUM 3.9 mmol/L (3.5-5.1); SODIUM 141 mmol/L (136-145)
== END | disposition home or self-care (01) ==
LOC: C.LABSPEC 09:46
PROVIDERS: ATTEND Internal Medicine Geriatric Medicine
DX: K26.9 Duodenal ulcer, unspecified as acute or chronic, without hemorrhage or perforation (principal)

== ENCOUNTER → 2017-09-24 | Outpatient (CLI) | payer OTHER | END | disposition home or self-care (01) | LOC: C.RDSM 11:38 | PROVIDERS: ATTEND Physical Medicine & Rehabilitation Sports Medicine | DX: M25.651 Stiffness of right hip, not elsewhere classified (principal); M25.652 Stiffness of left hip, not elsewhere classified ==

== ENCOUNTER → 2017-12-21 | Outpatient (CLI) | payer OTHER ==
[2017-12-21 10:57] LABS: HEMATOCRIT 40.1 % (37-47); HEMOGLOBIN 12.6 g/dL (12.0-16.0); MEAN CELL VOLUME 86.8 fL (80-100); MEAN CORPUSCULAR HEMOGLOBIN 27.3 pg (25-34); MEAN CORPUSCULAR HGB CONC 31.4 g/dl (32-36); MEAN PLATELET VOLUME 9.9 fL (7.4-10.4); PLATELET COUNT 289 K/uL (130-400); RED CELL DISTRIBUTION WIDTH CV 17.4 % (11.5-14.5); RED CELL DISTRIBUTION WIDTH SD 55.4 fL (36.4-46.3); WHITE BLOOD COUNT 9.74 K/uL (4.8-10.8)
[2017-12-21 11:22] LABS: ALBUMIN 3.3 gm/dl (3.4-5.0); ALT/SGPT 14 U/L (12-78); BLOOD UREA NITROGEN 19 mg/dl (7-18); CALCIUM 9.1 mg/dl (8.5-10.1); CARBON DIOXIDE 27 mmol/L (21-32); CHOLESTEROL 128 mg/dl (0-200); CREATININE 0.94 mg/dl (0.60-1.20); GLUCOSE 94 mg/dl (70-99); POTASSIUM 4.3 mmol/L (3.5-5.1); SODIUM 140 mmol/L (136-145)
[2017-12-21 11:25] LABS: ALKALINE PHOSPHATASE 57 U/L (45-117); AST/SGOT 11 U/L (15-37); LDL CHOLESTEROL CALCULATED 63 mg/dl
== END | disposition home or self-care (01) ==
LOC: C.LABBC 08:53
PROVIDERS: ATTEND Physician Assistant Medical
DX: Z00.00 Encounter for general adult medical examination without abnormal findings (principal); N20.0 Calculus of kidney; I12.9 Hypertensive chronic kidney disease with stage 1 through stage 4 chronic kidney disease, or unspecified chronic kidney disease; R73.9 Hyperglycemia, unspecified; N18.3 Chronic kidney disease, stage 3 (moderate); D64.9 Anemia, unspecified; I63.9 Cerebral infarction, unspecified; I48.0 Paroxysmal atrial fibrillation; K21.9 Gastro-esophageal reflux disease without esophagitis